=== PATIENT | male | born 1935 | race Caucasian/White ===

== ENCOUNTER 2019-03-25 10:24 | Emergency (ER) | payer MEDICARE, BC ==
[~2019-03-25] VITALS: Ht 175.3 cm; Wt 78.0 kg
[~2019-03-25 10:24] MED LIST: AMLO2.5T4 PO; ASPI-807 PO; LOSA100T31 PO; NIAC500T2 PO; OMEP20CA11 PO
--- NOTE | 2019-03-25 10:35 | NUR ---
PATIENT BIB RA 90 FROM HOME, TRIP/FALL, NO LOC. PATIENT A/O X 4. NO ACUTE DISTRESS. PATIENT REPORTS SLIDING AND FALLING, DENIES HEAD TRAUMA. SIGNIFICANT OTHER/CAREGIVER AT BEDSIDE. PATIENT CONNECTED TO MONITOR. WILL CONTINUE TO MONITOR
--- NOTE | 2019-03-25 12:43 | NUR ---
Ambulatory with a steady gait. Patient discharged to home in stable condition. Written and verbal after care instructions given. Patient verbalizes understanding of instruction.
[2019-03-25 12:44] VITALS: BP 138/75
== END 2019-03-25 12:45 | disposition home or self-care (01) ==
LOC: ER 10:26
DX: F03.90 Unspecified dementia, unspecified severity, without behavioral disturbance, psychotic disturbance, mood disturbance, and anxiety (principal); R51 Headache; I10 Essential (primary) hypertension; E78.5 Hyperlipidemia, unspecified; Z85.46 Personal history of malignant neoplasm of prostate; Z98.890 Other specified postprocedural states; Z79.82 Long term (current) use of aspirin; Z79.899 Other long term (current) drug therapy; W01.0XXA Fall on same level from slipping, tripping and stumbling without subsequent striking against object, initial encounter; Y93.89 Activity, other specified; Y92.000 Kitchen of unspecified non-institutional (private) residence as the place of occurrence of the external cause; Y99.8 Other external cause status
CPT/HCPCS: 70450-TC; 72125-TC

== ENCOUNTER 2019-08-15 12:06 | Inpatient (IN) | payer MEDICARE, BC ==
[~2019-08-15] VITALS: Ht 177.8 cm; Wt 75.7 kg
[~2019-08-15 12:06] MED LIST changes: -OMEP20CA11 PO; +OMEP20CA15 PO
--- NOTE | 2019-08-15 12:08 | NUR ---
[facility] TO ER, THE CALLED 911 DUE TO WORSENING AGITATION WHILE AT HOME. THE PATIENT HAS HISTORY OF DEMENTIA.
--- NOTE | 2019-08-15 12:10 | NUR ---
TO ER 03
--- NOTE | 2019-08-15 12:16 | NUR ---
TENT FINISHER AT BEDSIDE FOR EVAL. URINAL GIVEN.
[2019-08-15 12:30] LABS: BASOPHILS # (AUTO) 0.1 /CMM (0.0-0.2); BASOPHILS % (AUTO) 1.1 % (0.0-2.0); EOSINOPHILS % (AUTO) 2.8 % (0.0-6.0); HEMATOCRIT 44 % (39-51); HEMOGLOBIN 14.5 g/dL (13.5-17.5); LYMPHOCYTES # (AUTO) 1.3 /CMM (0.8-4.8); LYMPHOCYTES % (AUTO) 25.5 % (20.0-44.0); MEAN CORPUSCULAR HGB CONC 33 g/dl (31.0-36.0); MEAN CORPUSCULAR VOLUME 94 fL (80-96); MONOCYTES # (AUTO) 0.5 /CMM (0.1-1.30); MONOCYTES % (AUTO) 8.9 % (2.0-12.0); NEUTROPHILS # (AUTO) 3.2 /CMM (1.8-8.9); NEUTROPHILS % (AUTO) 61.7 % (43.0-81.0); PLATELET COUNT (AUTO) 150 /CMM (150-450); RED BLOOD CELL COUNT(AUTO) 4.67 MIL/uL (4.5-6.0); WHITE BLOOD COUNT (AUTO) 5.1 K/uL (4.3-11.0)
[2019-08-15] MEDS ORDERED: METO25TA3 PO (12:39)
[2019-08-15] MEDS ORDERED: CHOL100040 PO (12:39)
[2019-08-15] MEDS ORDERED: DONE10TA44 PO (12:39)
[2019-08-15] MEDS ORDERED: OMEP20CA15 PO (12:39)
[2019-08-15] MEDS ORDERED: ASCO500T9 PO (12:39)
[2019-08-15] MEDS ORDERED: DIVA125T32 PO (12:39)
[2019-08-15] MEDS ORDERED: TEMA15CA PO (12:39)
[2019-08-15] MEDS ORDERED: FLUT1DIS3 IH (12:39)
[2019-08-15] MEDS ORDERED: VITA400C19 PO (12:39)
[2019-08-15] MEDS ORDERED: MEMA10TA PO (12:39)
[2019-08-15] MEDS ORDERED: OLME40TA12 PO (12:39)
[2019-08-15] MEDS ORDERED: OLAN5TAB3 PO (12:39)
[2019-08-15] MEDS ORDERED: CALC-7 PO (12:39)
[2019-08-15 12:43] LABS: ALANINE AMINOTRANSFERASE 21 U/L (12-78); ALCOHOL, BLOOD < 3 mg/dL (0-0); ALKALINE PHOSPHATASE 74 U/L (46-116); ASPARTATE AMINOTRANSFERASE 29 U/L (15-37); BILIRUBIN,DIRECT 0.1 mg/dL (0.0-0.2); BILIRUBIN,TOTAL 0.6 mg/dL (0.2-1.0); CALCIUM, SERUM 8.4 mg/dL (8.5-10.1); CARBON DIOXIDE 26 mmol/L (21-32); CHLORIDE 106 mmol/L (98-107); GLUCOSE 81 mg/dL (74-106); POTASSIUM 3.5 mmol/L (3.5-5.1); SODIUM SERUM 143 mmol/L (136-145); TOTAL PROTEIN, SERUM 6.4 g/dL (6.4-8.2); UREA NITROGEN, BLOOD 10 mg/dL (7-18)
[2019-08-15 12:45] LABS: ACETAMINOPHEN 0 ug/ml (10-30); SALICYLATE < 0.2 mg/dL (2.8-20.0)
--- NOTE | 2019-08-15 12:52 | NUR ---
URINE SAMPLE OBTAINED VIA STERILE TECHNIQUE.
[2019-08-15 13:03] LABS: APPEARANCE,URINE Clear (CLEAR); BILIRUBIN,URINE SMALL (NEGATIVE); BLOOD, URINE Negative Ery/uL (NEGATIVE); COLOR,URINE Yellow (YELLOW); KETONES,URINE 15 (NEGATIVE); LEUKOCYTE ESTERASE ,URINE Negative (NEGATIVE); NITRITE, URINE Negative (NEGATIVE); PROTEIN,URINE Negative (NEGATIVE); UGLUCOSE Negative (NEGATIVE)
[2019-08-15 13:04] LABS: BACTERIA,URINE Few /HPF (None Seen); RBC,URINE 0-2 /HPF (0-2); SQUAMOUS EPITHELIAL CELL,UR Few /HPF (None Seen); WBC,URINE 0-2 /HPF (0-3)
[2019-08-15 13:05] LABS: THYROID STIMULATING HORMONE 1.139 uIU/mL (0.358-3.74)
--- NOTE | 2019-08-15 13:23 | NUR ---
DIALS SUPERVISOR IVCKY KUMARI 1HR
--- NOTE | 2019-08-15 15:09 | NUR ---
GOT GPS BED 215-B
--- NOTE | 2019-08-15 15:40 | NUR ---
REPORT GIVEN TO NUVIA PORTILLO FOR JAIMEE.
--- NOTE | 2019-08-15 15:51 | NUR ---
PATIENT TRANSFERRED TO [facility] IN STABLE CONDITION. A/OX1. NO DISTRESS NOTED.
[2019-08-15 16:00] VITALS: BP 160/87
[2019-08-15] MEDS ORDERED: MAG HYDROX/AL HYDROX/SIMETH 30 ML UDC PO PRN (16:30)
[2019-08-15] MEDS ORDERED: MAGNESIUM HYDROXIDE 30 ML UDC PO PRN (16:30)
[2019-08-15] MEDS ORDERED: BLOOD SUGAR DIAGNOSTIC 1 EACH STRIP IN ONE (16:30)
[2019-08-15] MEDS: MEMANTINE HCL 5 MG TABLET PO SCH (16:59)
[2019-08-15] MEDS: CALCIUM CARB 250MG /VITAMIN D 1 UDTAB PO SCH (16:59)
[2019-08-15] MEDS: VITAMIN E 400 UNIT CAPSULE PO SCH (17:01)
[2019-08-15] MEDS: ASPIRIN 81 MG TAB.CHEW PO SCH (17:02)
[2019-08-15] MEDS: METOPROLOL SUCCINATE 25 MG TAB.SR.24H PO SCH (17:02)
[2019-08-15] MEDS: LOSARTAN POTASSIUM 50 MG TABLET PO SCH (17:03)
[2019-08-15] MEDS: CHOLECALCIFEROL 1,000 UNIT TABLET (VIT D3) PO SCH (17:09)
--- NOTE | 2019-08-15 18:59 | NUR ---
GPS/RN-NOTES ADMITTED 84 [address] PATIENT. DR. BOLANOS AND DR. ABARCA AWARE OF THE ADMISSION.PATIENT ON 5150 FOR DTO AND GD ADULT. UPON FACE TO FACE ASSESSMENT PATIENT WAS CONFUSED ALERT TO NAME ONLY UNABLE TO ANSWER SIMPLE QUESTIONS. PATIENT'S SIGNIFICANT OTHER EFREN JANSEN ([phone]) MADE AWARE OF THE ADMISSION . PER EFREN JANSEN PATIENT IS DNR/DNI ADVANCE DIRECTIVES COPY WAS PLACE IN THE CHART. DR. ABARCA WAS MADE AWARE OF THE ADVANCE DIRECTIVES WITH T.O ORDER OF DNR/DNI .NOTED AND CARRIED OUT CO SIGNED BY THE CHARGE NURSE. FULL BODY ASSESSMENT AND CONTRABAND DONE.ENDORSE TO THE COST CONTROL ANALYST FOR CONTINUITY OF CARE.
[2019-08-15 20:00] VITALS: BP_SYST 151; BP_SYST 161; BP_DIAS 89
[2019-08-15] MEDS: FLUTICASONE/VILANTEROL 1 EACH BLST.W.DEV IH SCH (21:03)
[2019-08-15] MEDS: PANTOPRAZOLE 40 MG TABLET.DR PO SCH (21:16)
[2019-08-15] MEDS: DONEPEZIL 5 MG TABLET PO SCH (21:17)
[2019-08-16 07:17] LABS: ALBUMIN 3.2 g/dL (3.4-5.0); BILIRUBIN,TOTAL 0.8 mg/dL (0.2-1.0); CREATININE 1.2 mg/dL (0.6-1.3); POTASSIUM 3.2 mmol/L (3.5-5.1); TOTAL PROTEIN, SERUM 6.8 g/dL (6.4-8.2)
[2019-08-16 07:21] LABS: CHOLESTEROL 177 mg/dL (<200); HDL CHOLESTEROL 58 mg/dL (40-60); LDL 93 mg/dL (0-99); TRIGLYCERIDES 88 mg/dL (30-150)
[2019-08-16 08:00] VITALS: BP 183/99
[2019-08-16] MEDS: FLUTICASONE/VILANTEROL 1 EACH BLST.W.DEV IH SCH ×2 (08:41→21:11)
[2019-08-16] MEDS: MEMANTINE HCL 5 MG TABLET PO SCH ×2 (08:41→16:12)
[2019-08-16] MEDS: VITAMIN E 400 UNIT CAPSULE PO SCH (08:42)
[2019-08-16] MEDS: CHOLECALCIFEROL 1,000 UNIT TABLET (VIT D3) PO SCH (08:42)
[2019-08-16] MEDS: CALCIUM CARB 250MG /VITAMIN D 1 UDTAB PO SCH ×2 (08:42→16:12)
[2019-08-16] MEDS: ASCORBIC ACID 500 MG TABLET PO SCH (08:42)
--- NOTE | 2019-08-16 08:42 | NUR ---
GPS RN NOTE: REFUSAL OF MEDICATIONS PATIENT SLEPT FOR ONLY 1 HOUR LAST NIGHT. UNCOOPERATIVE AND ANGRY THIS MORNING. UNABLE TO USE INHALER DUE TO BEING UNABLE TO COMPREHEND DIRECTION. PATIENT WAS UNABLE TO TAKE HIS MEDICATIONS DUE TO NOT BEING ABLE TO FOLLOW DIRECTION. WHEN MEDICATION CRUSHED AND GIVEN IN APPLE SAUCE PATIENT REFUSED AFTER 2 SMALL BITES AND STARTED TO YELL. Addendum: 08/16/19 at 1208 by CAMILO BHATTI RN patient had less than whole dose of 40meq of potassium. patient sedated. attempted to arouse patient who had 2 small bites of apple sauce with medication and then proceeded to spit out apple sauce and went back to sleep
[2019-08-16] MEDS ORDERED: POTASSIUM CHLORIDE 20 MEQ TAB.PRT.SR PO SCH (11:30)
[2019-08-16 16:00] VITALS: BP 144/90
[2019-08-16] MEDS: ASPIRIN 81 MG TAB.CHEW PO SCH (17:00)
[2019-08-16] MEDS: METOPROLOL SUCCINATE 25 MG TAB.SR.24H PO SCH (17:04)
[2019-08-16] MEDS: LOSARTAN POTASSIUM 50 MG TABLET PO SCH (17:04)
[2019-08-16 21:10] VITALS: BP 147/73
[2019-08-16] MEDS: DONEPEZIL 5 MG TABLET PO SCH (21:11)
[2019-08-16] MEDS: PANTOPRAZOLE 40 MG TABLET.DR PO SCH (21:11)
[2019-08-16] MEDS ORDERED: MIRTAZAPINE 15 MG TABLET PO SCH (22:00)
[2019-08-17] MEDS: LORAZEPAM 0.5 MG TABLET PO PRN (03:48)
--- NOTE | 2019-08-17 03:49 | NUR ---
Pt agitated. trying to climb out of bed. Least restrictive measures ineffective. Ativan 0.5 mg po prn given as ordered. Will continue to monitor.
--- NOTE | 2019-08-17 04:50 | NUR ---
Post 1 hour Ativan effective. Pt is calm. Will continue to monitor.
[2019-08-17 08:00] VITALS: BP 144/85
[2019-08-17] MEDS: FLUTICASONE/VILANTEROL 1 EACH BLST.W.DEV IH SCH ×2 (08:46→21:16)
[2019-08-17] MEDS: CALCIUM CARB 250MG /VITAMIN D 1 UDTAB PO SCH ×2 (08:47→17:10)
[2019-08-17] MEDS: ASCORBIC ACID 500 MG TABLET PO SCH (08:47)
[2019-08-17] MEDS: CHOLECALCIFEROL 1,000 UNIT TABLET (VIT D3) PO SCH (08:48)
[2019-08-17] MEDS: VITAMIN E 400 UNIT CAPSULE PO SCH (08:48)
[2019-08-17] MEDS: MEMANTINE HCL 5 MG TABLET PO SCH ×2 (08:48→17:11)
--- NOTE | 2019-08-17 15:11 | NUR ---
GROUP NOTE: SW encouraged pt to attend group therapy on this present day to discuss "discharge planning." Pt is not appropriate for group. Pt has Alzheimer's and is unable to engage in a meaningful conversation.
[2019-08-17 16:00] VITALS: BP 109/74
[2019-08-17] MEDS ORDERED: risperiDONE 0.25 MG TABLET PO SCH (17:00)
[2019-08-17 17:07] LABS: ALANINE AMINOTRANSFERASE 37 U/L (12-78); ALBUMIN 3.6 g/dL (3.4-5.0); ALKALINE PHOSPHATASE 76 U/L (46-116); ASPARTATE AMINOTRANSFERASE 37 U/L (15-37); BILIRUBIN,TOTAL 1.1 mg/dL (0.2-1.0); CALCIUM, SERUM 9.3 mg/dL (8.5-10.1); CARBON DIOXIDE 31 mmol/L (21-32); CHLORIDE 103 mmol/L (98-107); CREATININE 1.3 mg/dL (0.6-1.3); GLUCOSE 109 mg/dL (74-106); POTASSIUM 3.9 mmol/L (3.5-5.1); SODIUM SERUM 143 mmol/L (136-145); TOTAL PROTEIN, SERUM 7.3 g/dL (6.4-8.2); UREA NITROGEN, BLOOD 16 mg/dL (7-18)
[2019-08-17] MEDS: ASPIRIN 81 MG TAB.CHEW PO SCH (17:10)
[2019-08-17] MEDS: METOPROLOL SUCCINATE 25 MG TAB.SR.24H PO SCH (17:10)
[2019-08-17] MEDS: risperiDONE 0.25 MG TABLET PO SCH (17:11)
[2019-08-17] MEDS: LOSARTAN POTASSIUM 50 MG TABLET PO SCH (17:12)
[2019-08-17 20:12] VITALS: BP 136/46
[2019-08-17] MEDS: PANTOPRAZOLE 40 MG TABLET.DR PO SCH (21:15)
[2019-08-17] MEDS: DONEPEZIL 5 MG TABLET PO SCH (21:15)
[2019-08-17] MEDS: MIRTAZAPINE 15 MG TABLET PO SCH (21:16)
[2019-08-18] MEDS: TEMAZEPAM 7.5 MG CAPSULE PO PRN (01:26)
--- NOTE | 2019-08-18 01:29 | NUR ---
GPS RN NOTES:INSOMNIA UPON DOING ROUNDS, PT AWAKE AND TRYING TO GET OUT OF BED. ASKED PT IF HE NEEDED ANYTHING. PT STATED, "IM AWAKE AWAKE. HELLO." PT VITALS ARE WNL. BREATHING EVEN AND UNLABORED. OFFERED RESTORIL 7.5MG PO PRN ORDERED. PT AGREED AND TOLERATED MEDICATION WELL. CONTINUE TO MONITOR.
[2019-08-18] MEDS: LORAZEPAM 0.5 MG TABLET PO PRN (04:08)
--- NOTE | 2019-08-18 04:09 | NUR ---
GPS RN NOTES: ANXIOUS PT PUT IN OUMAR CHAIR DUE TO PT YELLING IN ROOM AND GETTING OUT OF BED. STAFF MEMBER WATCHING OVER PT. PT CONTINUE SPEAKING LOUDER. PT IS ANXIOUS. OFFERED ATIVAN 0.5MG PO PRN ORDERED. PT AGREED AND TOLERATED MEDICATION WELL. CONTINUE TO MONITOR.
--- NOTE | 2019-08-18 05:58 | NUR ---
GPS RN NOTES: REFUSED TO DRAW BLOOD PT REFUSED TO DRAW BLOOD. EXPLAIN RISKS AND BENEFITS. PT STILL REFUSED X3. LABORATORY WILL TRY AGAIN LATER TODAY. WILL ENDORSE TO DAY SHIFT. CONTINUE TO MONITOR
[2019-08-18 08:00] VITALS: BP 148/84
[2019-08-18] MEDS: MEMANTINE HCL 5 MG TABLET PO SCH ×2 (08:41→17:02)
[2019-08-18] MEDS: ASCORBIC ACID 500 MG TABLET PO SCH (08:41)
[2019-08-18] MEDS: CALCIUM CARB 250MG /VITAMIN D 1 UDTAB PO SCH ×2 (08:41→17:02)
[2019-08-18] MEDS: VITAMIN E 400 UNIT CAPSULE PO SCH (08:41)
[2019-08-18] MEDS: CHOLECALCIFEROL 1,000 UNIT TABLET (VIT D3) PO SCH (08:41)
[2019-08-18] MEDS: risperiDONE 0.25 MG TABLET PO SCH ×3 (08:41→17:02)
--- NOTE | 2019-08-18 09:32 | NUR ---
FAMILY CONTACT: MORRO contacted pts significant other Maira [phone] for collateral information and discharge planning. She states pt was diagnosed with Alzheimer's 7 year ago and states she has been taking care of him for the past 3 years. She states that pt had a major surgery and had severe blood loss to the brain which impacted his memory she states that since then pts been declining cognitively and she is not unable to care for him at home and wishes for pt to be placed at a SNF. She states pt does not sleep at night and is up all night wandering and responding to visual/auditory hallucinations and becomes agitated and aggressive.
--- NOTE | 2019-08-18 09:53 | NUR ---
GPS RN NOTE: PATIENT UP IN OUMAR CHAIR SLEEPING INTERMITTENTLY. AROUSABLE AOX1. PATIENT COMPLIANT WITH MEDICATION ADMINISTRATION. CRUSHED MEDICATIONS IN PUDDING. PATIENT IS IN A CALM AND COOPERATIVE MOOD THIS AM. ATE FULL MEAL FOR BREAKFAST. SKIN CARE RENDERED. WILL CONTINUE TO MONITOR Q15 FOR MOOD, SAFETY AND BEHAVIOR.
[2019-08-18] MEDS: FLUTICASONE/VILANTEROL 1 EACH BLST.W.DEV IH SCH ×2 (09:59→20:57)
--- NOTE | 2019-08-18 12:15 | NUR ---
INITIAL DISCHARGE PLAN: Per pts significant other Maira [phone] she wishes for pt to be placed at a SNF as she is unable to care for him. SW will help form a safe and proper discharge plan in collaboration with .
--- NOTE | 2019-08-18 15:14 | NUR ---
GROUP NOTE: SW encouraged pt to attend group therapy on this present day to discuss "negative behavior." Pt is not appropriate for group. Pt has Alzheimer's and is unable to engage in a meaningful conversation.
[2019-08-18 16:00] VITALS: BP 127/87
[2019-08-18] MEDS: LOSARTAN POTASSIUM 50 MG TABLET PO SCH (17:02)
[2019-08-18] MEDS: ASPIRIN 81 MG TAB.CHEW PO SCH (17:02)
[2019-08-18] MEDS: METOPROLOL SUCCINATE 25 MG TAB.SR.24H PO SCH (17:03)
[2019-08-18 20:00] VITALS: BP 101/82
[2019-08-18 20:14] VITALS: BP 101/82
[2019-08-18 20:20] LABS: BASOPHILS # (AUTO) 0.1 /CMM (0.0-0.2); BASOPHILS % (AUTO) 0.8 % (0.0-2.0); EOSINOPHILS % (AUTO) 1.5 % (0.0-6.0); HEMATOCRIT 46 % (39-51); HEMOGLOBIN 15.3 g/dL (13.5-17.5); LYMPHOCYTES # (AUTO) 1.4 /CMM (0.8-4.8); LYMPHOCYTES % (AUTO) 18.5 % (20.0-44.0); MEAN CORPUSCULAR HGB CONC 33 g/dl (31.0-36.0); MEAN CORPUSCULAR VOLUME 93 fL (80-96); MONOCYTES % (AUTO) 13.2 % (2.0-12.0); NEUTROPHILS # (AUTO) 5.1 /CMM (1.8-8.9); PLATELET COUNT (AUTO) 193 /CMM (150-450); RED BLOOD CELL COUNT(AUTO) 4.94 MIL/uL (4.5-6.0); WHITE BLOOD COUNT (AUTO) 7.7 K/uL (4.3-11.0)
[2019-08-18] MEDS: MIRTAZAPINE 15 MG TABLET PO SCH (21:25)
[2019-08-18] MEDS: PANTOPRAZOLE 40 MG TABLET.DR PO SCH (21:25)
[2019-08-18] MEDS: DONEPEZIL 5 MG TABLET PO SCH (21:26)
--- NOTE | 2019-08-18 23:05 | NUR ---
GPS RN notes Transfer of care to BANDAR Adames.
--- NOTE | 2019-08-18 23:10 | NUR ---
GPS RN OPENING NOTE RECEIVED REPORT FROM TRUMAN PORTILLO. TOLERATING ROOM AIR. NO S/S OF PAIN. NO DISTRESS NOTED. PATIENT CURRENTLY SITTING IN OUMAR CHAIR IN HALLWAY. WILL CONTINUE TO MONITOR.
--- NOTE | 2019-08-18 23:50 | NUR ---
TRANSFER OF CARE TO TRUMAN PORTILLO.
--- NOTE | 2019-08-18 23:51 | NUR ---
GPS RN notes Received Pt back from BANDAR Krishnamurthy.
[2019-08-19 08:00] VITALS: BP 125/65
--- NOTE | 2019-08-19 08:48 | NUR ---
GPS RN NOTE: RECEIVED PATIENT RESTING IN BED. PATIENT WAS FED BREAKFAST BY PALLET SORTER. SKIN CARE RENDERED. RESPIRATIONS EVEN AND UNLABORED. PATIENT IS AOX1 TO SELF, DISORIENTED, CONFUSED, DISORGANIZED. BED IN LOCKED POSITION, LOW, WITH 2 SIDE RAILS UP FOR SAFETY. ENVIRONMENTAL CHECKS DONE. WILL CONTINUE TO MONITOR PATIENT Q15 FOR MOOD, SAFETY AND BEHAVIOR
[2019-08-19] MEDS: VITAMIN E 400 UNIT CAPSULE PO SCH ×2 (09:00→09:21)
[2019-08-19] MEDS: ASCORBIC ACID 500 MG TABLET PO SCH ×2 (09:00→09:21)
[2019-08-19] MEDS: CHOLECALCIFEROL 1,000 UNIT TABLET (VIT D3) PO SCH ×2 (09:00→09:20)
[2019-08-19] MEDS: FLUTICASONE/VILANTEROL 1 EACH BLST.W.DEV IH SCH ×3 (09:00→21:01)
[2019-08-19] MEDS: CALCIUM CARB 250MG /VITAMIN D 1 UDTAB PO SCH ×3 (09:00→16:07)
[2019-08-19] MEDS: MEMANTINE HCL 5 MG TABLET PO SCH ×3 (09:00→16:07)
[2019-08-19] MEDS: risperiDONE 0.25 MG TABLET PO SCH ×4 (09:00→16:08)
--- NOTE | 2019-08-19 10:24 | NUR ---
GPS RN NOTE: INHALER PATIENT IS SEDATED AND UNABLE TO FOLLOW COMMANDS TO USE HIS INHALER.
--- NOTE | 2019-08-19 10:27 | NUR ---
GPS RN NOTE: MED REFUSAL PATIENT IS SEDATED AND WHILE ABLE TO BE AROUSED REFUSING TO RESPOND AND TO TAKE HIS MEDICATIONS. ATTEMPTED MEDICATION ADMINISTRATION 3X. LAST ATTEMPT JUST MADE AND PATIENT CONTINUES TO REFUSE FOOD AND MEDICATION.
[2019-08-19 16:00] VITALS: BP 112/61
[2019-08-19] MEDS: ASPIRIN 81 MG TAB.CHEW PO SCH (17:00)
[2019-08-19] MEDS: METOPROLOL SUCCINATE 25 MG TAB.SR.24H PO SCH (17:00)
[2019-08-19] MEDS: LOSARTAN POTASSIUM 50 MG TABLET PO SCH (17:00)
[2019-08-19 20:26] VITALS: BP 106/60
[2019-08-19 21:20] VITALS: BP 116/67
[2019-08-19] MEDS: DONEPEZIL 5 MG TABLET PO SCH (21:23)
[2019-08-19] MEDS: MIRTAZAPINE 15 MG TABLET PO SCH (21:23)
[2019-08-19] MEDS: PANTOPRAZOLE 40 MG TABLET.DR PO SCH (21:24)
[2019-08-19] MEDS: TEMAZEPAM 7.5 MG CAPSULE PO PRN (23:24)
--- NOTE | 2019-08-19 23:26 | NUR ---
GPS RN NOTES:INSOMNIA UPON DOING ROUNDS, PT AWAKE SPEAKING TO ELEVATOR REPAIRER APPRENTICE LOUDLY IN THE OUMAR CHAIR. ASKED PT IF HE NEEDED ANYTHING. PT STATED, "WHAT DO YOU HAVE AND WANT." BREATHING EVEN AND UNLABORED. OFFERED RESTORIL 7.5MG PO PRN ORDERED FOR SLEEP. PT AGREED AND TOLERATED MEDICATION WELL. CONTINUE TO MONITOR.
--- NOTE | 2019-08-20 04:32 | NUR ---
GPS RN NOTES: REFUSED ATIVAN PRN TRANSFERRED PT TO OUMAR CHAIR DUE TO YELLING IN ROOM AND GETTING OUT OF BED WITHOUT ASSISTANCE. PT WOKE UP ROOMMATE AND CONTINUE TO SPEAK LOUDLY. ASKED PT IF HE NEEDED ANYTHING. PT STATED "NO". PT IS CURRENTLY IN OUMAR CHAIR NEXT TO DAY ROOM WITH PRESS OFFBEARER STAFF MONITORING PT. NO S/S OF SOB. NO S/S OF RESPIRATORY DISTRESS BREATHING EVEN AND UNLABORED. OFFERED ATIVAN 0.5MG PO PRN ORDERED PT REFUSED. EXPLAIN RISKS AND BENEFITS. PT STILL REFUSED X3. PT IS CURRENTLY CALM AND QUIET OF NOW. CONTINUE TO MONITOR.
[2019-08-20] MEDS: LORAZEPAM 0.5 MG TABLET PO PRN (04:45)
--- NOTE | 2019-08-20 04:46 | NUR ---
GPS RN NOTES: ANXIOUS PT BANGING ON OUMAR CHAIR AND TALKING LOUDLY. STAFF MEMBER WATCHING OVER PT. PT CONTINUE SPEAKING LOUDER. PT IS ANXIOUS. OFFERED ATIVAN 0.5MG PO PRN ORDERED. PT AGREED AND TOLERATED MEDICATION WELL. CONTINUE TO MONITOR.
[2019-08-20 06:51] LABS: BASOPHILS # (AUTO) 0.1 /CMM (0.0-0.2); BASOPHILS % (AUTO) 0.8 % (0.0-2.0); EOSINOPHILS % (AUTO) 1.9 % (0.0-6.0); HEMATOCRIT 44 % (39-51); HEMOGLOBIN 14.7 g/dL (13.5-17.5); LYMPHOCYTES # (AUTO) 1.4 /CMM (0.8-4.8); LYMPHOCYTES % (AUTO) 18.4 % (20.0-44.0); MEAN CORPUSCULAR HGB CONC 33 g/dl (31.0-36.0); MEAN CORPUSCULAR VOLUME 93 fL (80-96); MONOCYTES # (AUTO) 0.9 /CMM (0.1-1.30); MONOCYTES % (AUTO) 11.4 % (2.0-12.0); NEUTROPHILS # (AUTO) 5.3 /CMM (1.8-8.9); NEUTROPHILS % (AUTO) 67.5 % (43.0-81.0); PLATELET COUNT (AUTO) 191 /CMM (150-450); RED BLOOD CELL COUNT(AUTO) 4.75 MIL/uL (4.5-6.0); WHITE BLOOD COUNT (AUTO) 7.8 K/uL (4.3-11.0)
[2019-08-20 07:12] LABS: ALANINE AMINOTRANSFERASE 43 U/L (12-78); ALBUMIN 3.4 g/dL (3.4-5.0); ALKALINE PHOSPHATASE 70 U/L (46-116); ASPARTATE AMINOTRANSFERASE 40 U/L (15-37); BILIRUBIN,TOTAL 0.7 mg/dL (0.2-1.0); CALCIUM, SERUM 9.2 mg/dL (8.5-10.1); CARBON DIOXIDE 30 mmol/L (21-32); CHLORIDE 106 mmol/L (98-107); CREATININE 1.3 mg/dL (0.6-1.3); GLUCOSE 98 mg/dL (74-106); POTASSIUM 3.6 mmol/L (3.5-5.1); SODIUM SERUM 144 mmol/L (136-145); UREA NITROGEN, BLOOD 29 mg/dL (7-18)
[2019-08-20 08:00] VITALS: BP 104/56
--- NOTE | 2019-08-20 08:00 | NUR ---
RECEIVED PATIENT RESTING IN BED. PATIENT WAS FED BREAKFAST BY DEHYDROGENATION OPERATOR. SKIN CARE RENDERED. RESPIRATIONS EVEN AND UNLABORED. PATIENT IS AOX1 TO SELF, DISORIENTED, CONFUSED, DISORGANIZED. BED IN LOCKED POSITION, LOW, WITH 2 SIDE RAILS UP FOR SAFETY. ENVIRONMENTAL CHECKS DONE. WILL CONTINUE TO MONITOR PATIENT Q15 FOR MOOD, SAFETY AND BEHAVIOR
[2019-08-20] MEDS: FLUTICASONE/VILANTEROL 1 EACH BLST.W.DEV IH SCH ×2 (08:51→21:00)
[2019-08-20] MEDS: VITAMIN E 400 UNIT CAPSULE PO SCH (08:53)
[2019-08-20] MEDS: MEMANTINE HCL 5 MG TABLET PO SCH ×2 (08:53→17:03)
[2019-08-20] MEDS: CHOLECALCIFEROL 1,000 UNIT TABLET (VIT D3) PO SCH (08:53)
[2019-08-20] MEDS: CALCIUM CARB 250MG /VITAMIN D 1 UDTAB PO SCH ×2 (08:53→17:03)
[2019-08-20] MEDS: ASCORBIC ACID 500 MG TABLET PO SCH (08:53)
[2019-08-20] MEDS: risperiDONE 0.25 MG TABLET PO SCH ×3 (08:53→17:03)
--- NOTE | 2019-08-20 09:00 | NUR ---
SNF REFERRAL: MORRO faxed SNF referral to [facility] Address: [address] [facility], [place] [address] for review.
--- NOTE | 2019-08-20 12:51 | NUR ---
SNF REFERRAL: SW received a call from milady Ness at [facility] Address: [address] [place] [address] stating pt has been accepted to the facility.
--- NOTE | 2019-08-20 13:02 | NUR ---
ATTEMPTED TO DO STRAIGHT IN AND OUT CATHETER TO COLLECT URINE FOR UA C/S BUT PT WAS SO AGGRESSIVE,KICKING AND HITTING STAFF INSPITE OF EXPLAINING THE PROCEDURE PRIOR TO DOING STRAIGHT CATH.UNABLE TO COLLECT URINE AT THIS TIME.WILL TRY LATER.
--- NOTE | 2019-08-20 15:57 | NUR ---
Individual Note: In lieu of group therapy due to COVID 19, SW met with the pt at bedside but the pt was unable to engage in a conversation due to having Alzheimers. SW deemed the pt inappropriate for therapy.
[2019-08-20 16:00] VITALS: BP 124/74
[2019-08-20] MEDS: ASPIRIN 81 MG TAB.CHEW PO SCH (17:04)
[2019-08-20] MEDS: METOPROLOL SUCCINATE 25 MG TAB.SR.24H PO SCH (17:04)
[2019-08-20] MEDS: LOSARTAN POTASSIUM 50 MG TABLET PO SCH (17:08)
[2019-08-20 20:45] VITALS: BP 104/70
[2019-08-20] MEDS: MIRTAZAPINE 15 MG TABLET PO SCH (21:37)
[2019-08-20] MEDS: DONEPEZIL 5 MG TABLET PO SCH (21:37)
[2019-08-20] MEDS: PANTOPRAZOLE 40 MG TABLET.DR PO SCH (21:37)
--- NOTE | 2019-08-20 21:44 | NUR ---
GPS RN NOTES: REFUSED BREO ELLIPTA MEDICATION PT REFUSED BREO ELLIPTA INHALER DUE AT 2100. PT BECOME MORE AGITATED WHEN OFFERED MEDICATION TP PT. EXPLAINED RISKS AND BENEFITS . PT STILL REFUSED. PT MORE AGITATED. CONTINUE TO MONITOR.
[2019-08-21 01:26] LABS: APPEARANCE,URINE CLEAR (CLEAR); BILIRUBIN,URINE SMALL (NEGATIVE); BLOOD, URINE NEGATIVE Ery/uL (NEGATIVE); COLOR,URINE YELLOW (YELLOW); KETONES,URINE TRACE (NEGATIVE); LEUKOCYTE ESTERASE ,URINE NEGATIVE (NEGATIVE); NITRITE, URINE NEGATIVE (NEGATIVE); PROTEIN,URINE TRACE mg/dl (NEGATIVE); UGLUCOSE NEGATIVE (NEGATIVE); UROBILINOGEN,URINE 0.2 EU/dL (0.2)
[2019-08-21 01:30] LABS: BACTERIA,URINE Few /HPF (None Seen); RBC,URINE 0-2 /HPF (0-2); SQUAMOUS EPITHELIAL CELL,UR Few /HPF (None Seen)
[2019-08-21 06:45] LABS: CALCIUM, SERUM 9.1 mg/dL (8.5-10.1); CREATININE 1.2 mg/dL (0.6-1.3); POTASSIUM 3.5 mmol/L (3.5-5.1)
[2019-08-21 08:00] VITALS: BP 140/63
[2019-08-21] MEDS: ASCORBIC ACID 500 MG TABLET PO SCH (08:10)
[2019-08-21] MEDS: CALCIUM CARB 250MG /VITAMIN D 1 UDTAB PO SCH ×2 (08:10→16:44)
[2019-08-21] MEDS: MEMANTINE HCL 5 MG TABLET PO SCH ×2 (08:11→16:46)
[2019-08-21] MEDS: VITAMIN E 400 UNIT CAPSULE PO SCH (08:11)
[2019-08-21] MEDS: risperiDONE 0.25 MG TABLET PO SCH ×3 (08:11→16:44)
[2019-08-21] MEDS: CHOLECALCIFEROL 1,000 UNIT TABLET (VIT D3) PO SCH (08:11)
[2019-08-21] MEDS: FLUTICASONE/VILANTEROL 1 EACH BLST.W.DEV IH SCH ×2 (08:18→21:39)
--- NOTE | 2019-08-21 08:33 | NUR ---
FAMILY CONTACT: MORRO contacted pts significant other Maira [phone] and informed her pt has been accepted to [facility]. MORRO also informed her that she is waiting for discharge order from MD and she stated that yesterday when she called pt was agitated and had not slept well the night before. MORRO informed her that pt slept 8 hours last night and will inform MD of her concerns. S/O agrees with treatment and discharge plan once pt is stable.
[2019-08-21] MEDS: LORAZEPAM 0.5 MG TABLET PO PRN (08:55)
--- NOTE | 2019-08-21 09:00 | NUR ---
pt noted being combative to staff while providing care. yelling and screaming noted as well. prn ativan given to pt as ordered. will continue to monitor.
--- NOTE | 2019-08-21 09:43 | NUR ---
WOUND CARE CONSULT: PT PRESENTS WITH LEFT ARM SKIN TEAR AND DRY SKIN TO UPPER AND LOWER EXTREMITIES WITH DISCOLORATION, PRESENT ON ADMISSION. RECOMMENDATIONS MADE FOR SKIN PROTECTION AND WOUND CARE. DISCUSSED WITH NURSING STAFF. WILL SEE PRN. VINCENT IN AGREEMENT WITH PLAN OF CARE. Addendum: 08/21/19 at 0944 by SPRING AGUILLON WNDNU Amended: Links added.
[2019-08-21] MEDS ORDERED: Z GUARD REMEDY 2 OZ OINT TP PRN (10:00)
[2019-08-21] MEDS: MINERAL OIL/PETROLATUM,WHITE 120 GM JAR TP SCH (11:13)
[2019-08-21] MEDS: Z GUARD REMEDY 2 OZ OINT TP SCH (11:13)
[2019-08-21] MEDS: BENZTROPINE MESYLATE (1 MG) 1 MG TABLET PO SCH (12:05)
--- NOTE | 2019-08-21 13:05 | NUR ---
pt requesting for [id number] prn for mild pain, generalized pain. prn given to pt as ordered. will continue to monitor pt.
--- NOTE | 2019-08-21 14:20 | NUR ---
FAMILY CONTACT: SW received a call from pts significant other Maira [phone] expressing concern with pt discharging to a SNF. She stated she really wishes for pt to be discharged to a [facility] and is questioning why pt has to be discharged to a SNF. SW informed her that pt requires a higher level of care due to his aggressive and unpredictable behavior. SW stated that pt requires total assistance with ADL's and also stated that pt receives PT and will continue to receive it at the SNF. S/O stated that the [facility] has 6 beds with 2 nurses and feels they are capable of handling pts behavior. MORRO stated that she will inform MD of her concern and will have MD call her on Saturday to discuss appropriate discharge plan. In the meantime S/O will fax physicians report to MORRO to have it completed and faxed to the [facility].
[2019-08-21 16:00] VITALS: BP 121/52
[2019-08-21] MEDS: LOSARTAN POTASSIUM 50 MG TABLET PO SCH (17:15)
[2019-08-21] MEDS: METOPROLOL SUCCINATE 25 MG TAB.SR.24H PO SCH (17:15)
[2019-08-21] MEDS: ASPIRIN 81 MG TAB.CHEW PO SCH (17:15)
[2019-08-21 19:30] VITALS: BP 99/56
--- NOTE | 2019-08-21 19:54 | NUR ---
RN NOTES PATIENT IN BED, ASLEEP. NO S/S OR COMPLAIN OF PAIN AT THIS TIME. PATIENT DISPLAYS NO S/S OF DISTRESS. BREATHING EVEN AND UNLABORED ON ROOM AIR. PATIENT IS ALERT AND ORIENTED X 1. CONFUSED, COOPERATIVE, FLAT AFFECT, EASILY IRRITATED. SAFETY PRECAUTIONS IN PLACE. BED IN LOWEST POSITION, LOCKED, AND CALL LIGHT KEPT WITHIN REACH. WILL CONTINUE TO MONITOR
[2019-08-21] MEDS: MIRTAZAPINE 15 MG TABLET PO SCH (21:40)
[2019-08-21] MEDS: PANTOPRAZOLE 40 MG TABLET.DR PO SCH (21:40)
[2019-08-21] MEDS: DONEPEZIL 5 MG TABLET PO SCH (21:40)
[2019-08-22 08:00] VITALS: BP 129/71
--- NOTE | 2019-08-22 08:39 | NUR ---
Pt. with temp. of 100.9 and with cough. Cong Villalta made aware and ordered CBC, BMP, Ferritin, LDH and Chest- X ray.
[2019-08-22] MEDS: FLUTICASONE/VILANTEROL 1 EACH BLST.W.DEV IH SCH ×2 (08:57→21:02)
[2019-08-22] MEDS: VITAMIN E 400 UNIT CAPSULE PO SCH (08:58)
[2019-08-22] MEDS: ACETAMINOPHEN 325 MG TABLET PO PRN ×2 (08:58→17:19)
[2019-08-22] MEDS: ASCORBIC ACID 500 MG TABLET PO SCH (08:58)
[2019-08-22] MEDS: CHOLECALCIFEROL 1,000 UNIT TABLET (VIT D3) PO SCH (08:59)
[2019-08-22] MEDS: MEMANTINE HCL 5 MG TABLET PO SCH ×2 (08:59→17:20)
[2019-08-22] MEDS: CALCIUM CARB 250MG /VITAMIN D 1 UDTAB PO SCH ×2 (08:59→17:20)
[2019-08-22] MEDS: risperiDONE 0.25 MG TABLET PO SCH ×3 (08:59→17:20)
[2019-08-22 09:14] LABS: BASOPHILS % (AUTO) 0.4 % (0.0-2.0); EOSINOPHILS % (AUTO) 1.2 % (0.0-6.0); HEMATOCRIT 41 % (39-51); HEMOGLOBIN 13.6 g/dL (13.5-17.5); LYMPHOCYTES # (AUTO) 0.9 /CMM (0.8-4.8); LYMPHOCYTES % (AUTO) 11.3 % (20.0-44.0); MEAN CORPUSCULAR HGB CONC 33 g/dl (31.0-36.0); MEAN CORPUSCULAR VOLUME 94 fL (80-96); MONOCYTES % (AUTO) 11.7 % (2.0-12.0); NEUTROPHILS # (AUTO) 6.3 /CMM (1.8-8.9); NEUTROPHILS % (AUTO) 75.4 % (43.0-81.0); PLATELET COUNT (AUTO) 151 /CMM (150-450); RED BLOOD CELL COUNT(AUTO) 4.38 MIL/uL (4.5-6.0); WHITE BLOOD COUNT (AUTO) 8.4 K/uL (4.3-11.0)
[2019-08-22 09:22] LABS: CALCIUM, SERUM 8.9 mg/dL (8.5-10.1); CREATININE 1.3 mg/dL (0.6-1.3)
[2019-08-22] MEDS: MINERAL OIL/PETROLATUM,WHITE 120 GM JAR TP SCH (09:22)
[2019-08-22] MEDS: Z GUARD REMEDY 2 OZ OINT TP SCH (09:23)
--- NOTE | 2019-08-22 10:00 | NUR ---
RECHECKED TEMP AND IT WENT DOWN TO 98.8, WILL CONTINUE TO MONITOR.
--- NOTE | 2019-08-22 11:00 | NUR ---
RN NOTES CALLED AND SPOKE TO ALLIE KUMARI, RELAYED THE RESULTS OF LABS AND CHEST XR, ORDERED FOR UA. WILL CONTINUE TO MONITOR.
[2019-08-22] MEDS: BENZTROPINE MESYLATE (1 MG) 1 MG TABLET PO SCH (12:06)
--- NOTE | 2019-08-22 13:00 | NUR ---
RN NOTES SEEN AND EXAMINED BY ALLIE KUMARI, PATIENT WAS TRANSFERRED TO ROOM 217, ON ISOLATION PRECAUTION TO RULE OUT COVID, FAMILY MADE AWARE. V/S WNL. NO SIGNS OF DISTRESS NOTED. WILL CONTINUE TO MONITOR. Addendum: 08/22/19 at 1647 by RADHA FLOREZ RN ALLIE KUMARI ALSO ORDERED 24 HOURS MONITORING FOR OXYGEN SATURATION.
[2019-08-22 13:35] LABS: BILIRUBIN,DIRECT 0.3 mg/dL (0.0-0.2); BILIRUBIN,TOTAL 1.1 mg/dL (0.2-1.0); TOTAL PROTEIN, SERUM 6.5 g/dL (6.4-8.2)
[2019-08-22 16:00] VITALS: BP 122/56
--- NOTE | 2019-08-22 16:45 | NUR ---
Cong Villalta made of aware of the latest of 100.2 and said just give Tylenol.
[2019-08-22] MEDS: ASPIRIN 81 MG TAB.CHEW PO SCH (17:19)
[2019-08-22] MEDS: LOSARTAN POTASSIUM 50 MG TABLET PO SCH (17:25)
[2019-08-22] MEDS: METOPROLOL SUCCINATE 25 MG TAB.SR.24H PO SCH (17:25)
[2019-08-22 18:23] LABS: APPEARANCE,URINE CLEAR (CLEAR); BILIRUBIN,URINE NEGATIVE (NEGATIVE); BLOOD, URINE NEGATIVE Ery/uL (NEGATIVE); KETONES,URINE NEGATIVE (NEGATIVE); LEUKOCYTE ESTERASE ,URINE NEGATIVE (NEGATIVE); NITRITE, URINE NEGATIVE (NEGATIVE); PH,URINE 8.5 (5.0-8.0); PROTEIN,URINE NEGATIVE (NEGATIVE); UGLUCOSE NEGATIVE (NEGATIVE); UROBILINOGEN,URINE 0.2 EU/dL (0.2)
[2019-08-22 18:26] LABS: COLOR,URINE DARK YELLOW (YELLOW)
--- NOTE | 2019-08-22 18:45 | NUR ---
RN NOTES LATEST TEMPERATURE 97.8 ORALLY. WILL CONTINUE TO MONITOR.
--- NOTE | 2019-08-22 19:00 | NUR ---
RN NOTES: REPORTED INCIDENT "HEALTHCARE ASSOCIATED INFECTION" ONLINE PER [facility] POLICY PT NOW RULING OUT COVID. RECEIVED FROM DAY RN, PT WAS PLACED ON ISOLATION FOR R/O COVID-[address] ALLIE KUMARI. PT NOTED TO HAVE DRY COUGH WITH FEVER. PER PROTOCOL, SARS-COVID TESTING WAS PERFORMED BY MD HIMSELF. SPECIMEN SENT OUT, AWAITING FOR RESULT. PT WAS MOVED FROM A REGULAR ROOM INTO A NEGATIVE PRESSURE AIR ROOM 217. WITH ORDERS TO DO CONTINUOS PULSE OX MONITORING 24/ FOR THE PT, AND 1:1 SITTER WAS ORDERED BY . VS MONITORING. RN TEST PREPARER BUBBAR WAS NOTIFIED BY BANDAR SANDOVAL IN AM. PT NOW ON CONTACT/DROPLET AND AIRBORNE PRECAUTIONS, PPE UTILIZED.
--- NOTE | 2019-08-22 20:10 | NUR ---
BATH MIXER: RECEIVED REPORT FROM RADHA AT 1920. PT ON ISOLATION R/O COVID-19, SARS-COV-2 TESTING DONE. PT IS CONFUSED, A/O X1, ON CONTINUOUS PULSE OXIMETER, SITTER AT BED SIDE. ALTHOUGH CONFUSED, WHEN ASKED PT IF HE HAS PLANS OF HURTING HIMSELF OR COMMITTING ANY SUICIDE, PT STATED "NO". PT IS INCONTINENT. PER REPORT, PT EASILY GETS ANGRY, EASILY IRRITABLE, PT ON ASPIRATIONS PRECAUTIONS, KEPT HOB 30 DEGREES. NOTED MULTIPLE DISCOLORATIONS ON ARMS AND LEGS,SKIN TEAR NOTED ON LEFT ELBOW. SAFETY PRECAUTIONS FOR FALL INITIATED, SIDE RAILS UP X3 FOR SAFETY, WILL CONTINUE TO MONITOR PT [id number] FOR SAFETY AND ANY CHANGES IN BEHAVIOR.
[2019-08-22 20:30] VITALS: BP 138/63
[2019-08-22] MEDS: DONEPEZIL 5 MG TABLET PO SCH (21:02)
[2019-08-22] MEDS: PANTOPRAZOLE 40 MG TABLET.DR PO SCH (21:02)
[2019-08-22] MEDS: MIRTAZAPINE 15 MG TABLET PO SCH (21:02)
--- NOTE | 2019-08-22 21:03 | NUR ---
rn notes: pt r/o covid, ppe utilized, handwashing performed. informed straightener estelita holden about pt condition, and his duty for the night. pt currently on continuous pulse oximetry to measure o2 sat throughout the shift. hr shows 80-90, spo2 92-945 on ra. no sob noted. pt communicative, able to make his needs known. denies any pain or discomfort at this time. went to assess pt, pt awake, cooperative however cursing staff for repositioning him, pt leans towards on left side. vs taken and recorded. all due meds administered, pt able to swallow without choking. meds crushed , given to pt with apple sauce. assisted in feeding pt with pudding and cranberry juice, apple sauce. all consumed 100%. kept on aspiration precautions. assisted straightener in changing pt's diaper, repositioned in bed. kept hob 30 degrees since pt just had snack and just received his meds. stayed in pt's room providing care for max 20mins. ppe removed, hand washing performed. pt's inhaler/breo ellipta left in pt's locker to avoid cross contamination.
--- NOTE | 2019-08-22 21:53 | NUR ---
RN NOTES: RECEIVED CALL FROM PT'S DAUGHTER, PROVIDED WITH UPDATE REGARDING PT'S BEHAVIOR AND CONDITION. ALL QUESTIONS ANSWERED BASED ON RECENT IMAGING, LAB RESULT, MEDICATION AND MD'S PLAN OF CARE FOR PT. INFORMED DAUGHTER PT WITH SITTER, AND NOW ON CONTINUOUS PULSE OXIMETRY TO MEASURE PT'S OXYGENATION STATUS. PT AFEBRILE. DAUGHTER EXPRESSES HER GRATITUDE TO ALL THE STAFF WORKING DURING THIS PANDEMIC.
--- NOTE | 2019-08-23 00:09 | NUR ---
rn notes: security and engineering were called to please check the room, pt for r/o covid 19, negative pressure room. asked these personnel to please check if negative pressure properly working.
--- NOTE | 2019-08-23 01:00 | NUR ---
RN NOTES: ENGINEERING CAME TO CHECK PT'S ROOM, PER ENGINEERING, ROOM'S NEGATIVE PRESSURE IS PROPERLY WORKING.
[2019-08-23 04:00] VITALS: BP 122/59
--- NOTE | 2019-08-23 04:39 | NUR ---
RN NOTES/AM CARE: ASSISTED AQUATIC CENTRE MANAGER IN PROVIDING BED BATH TO PT AT 0400AM, VS TAKEN AND RECORDED, NOTED PT TO BE AFEBRILE. PT COOPERATIVE. PULSE OX SENSOR CHANGED, COMPLETE LINEN CHANGE PROVIDED.
--- NOTE | 2019-08-23 08:00 | NUR ---
RN NOTES RECEIVED PATIENT IN THE ROOM CONFUSED, A/O X1, R/O ISOLATION OF COVID-19. NO ACUTE RESPIRATORY DISTRESS, V/S STABLE, NO FEBRILE,. NO COUGHING, BUT POOR EATER. TOLERATED BREAKFAST 25% WITH ASSIST. PATIENT REFUSED PAIN. PATIENT INCONTINENT, TOTAL CARE, ADMINISTERED SCHEDULED MEDICATION, WITH CRUSHED AND MIXED WITH APPLE SAUCE, . 1:1 SITTER NEXT TO THE BED FOR SAFETY. ASSIST TURN AND REPOSTION Q 2 HR. PATIENT INCOMITANT USING DIAPER.
[2019-08-23 08:01] VITALS: BP 111/51
[2019-08-23] MEDS: CHOLECALCIFEROL 1,000 UNIT TABLET (VIT D3) PO SCH (09:45)
[2019-08-23] MEDS: risperiDONE 0.25 MG TABLET PO SCH ×3 (09:46→17:20)
[2019-08-23] MEDS: ASCORBIC ACID 500 MG TABLET PO SCH (09:46)
[2019-08-23] MEDS: CALCIUM CARB 250MG /VITAMIN D 1 UDTAB PO SCH ×2 (09:46→16:52)
[2019-08-23] MEDS: VITAMIN E 400 UNIT CAPSULE PO SCH (09:46)
[2019-08-23] MEDS: MEMANTINE HCL 5 MG TABLET PO SCH ×2 (09:48→16:53)
[2019-08-23] MEDS: FLUTICASONE/VILANTEROL 1 EACH BLST.W.DEV IH SCH ×2 (09:49→21:06)
[2019-08-23] MEDS: MINERAL OIL/PETROLATUM,WHITE 120 GM JAR TP SCH (09:49)
[2019-08-23] MEDS: Z GUARD REMEDY 2 OZ OINT TP SCH (09:50)
--- NOTE | 2019-08-23 12:53 | NUR ---
RN NOTES PATIENT STABLE HR-59/64, ROOM WAIT O2-95 % RA , REFUSED PAIN TOLERATED LUNCH 50% WITH ASSIST. ASSIST TURN AND REPOSTION Q 2 HR. 1:1 SITTER NEXT TO THE BED.
[2019-08-23] MEDS: BENZTROPINE MESYLATE (1 MG) 1 MG TABLET PO SCH (13:24)
[2019-08-23 16:00] VITALS: BP 115/53
[2019-08-23] MEDS: ASPIRIN 81 MG TAB.CHEW PO SCH (16:53)
--- NOTE | 2019-08-23 17:06 | NUR ---
RN-CO: DR KUMARI MADE AWARE OF THE RESULT OF SARS COV.
--- NOTE | 2019-08-23 17:10 | NUR ---
RN NOTES GET COVID -19 TEST RESULT NEGATIVE, NOTIFIED DNP ALLIE KUMARI AND PER HOSPITALIST, D/C ISOLATION, AND PULSE MONITORING. FAMILY NOTIFIED WELL.
--- NOTE | 2019-08-23 17:10 | NUR ---
RN-CO: PER DR KUMARI, DISCONTINUED 24 HOUR PULSE OX AND SITTER. NOTED.
[2019-08-23] MEDS: LOSARTAN POTASSIUM 50 MG TABLET PO SCH (17:21)
[2019-08-23] MEDS: METOPROLOL SUCCINATE 25 MG TAB.SR.24H PO SCH (17:21)
[2019-08-23 20:14] VITALS: BP 127/62
[2019-08-23] MEDS: DONEPEZIL 5 MG TABLET PO SCH (21:06)
[2019-08-23] MEDS: MIRTAZAPINE 15 MG TABLET PO SCH (21:06)
[2019-08-23] MEDS: PANTOPRAZOLE 40 MG TABLET.DR PO SCH (21:06)
--- NOTE | 2019-08-23 21:12 | NUR ---
RN NOTES DUE MEDS GIVEN, ATTEMPTING TO SPIT OUT CRUSHED MEDICATION, ASPIRATION PRECAUTION EMPHASIZED. PATIENT IS A LITTLE BIT IRRITABLE AT THIS TIME, KEEP COMFORTABLE, SAFETY MEASURES IN PLACE. WILL MONITOR ACCORDINGLY.
--- NOTE | 2019-08-24 00:18 | NUR ---
RN NOTES PATIENT STILL AWAKE, DOESN'T WANT TO BE BOTHERED, RESTING COMFORTABLY.
[2019-08-24 08:00] VITALS: BP 154/80
[2019-08-24] MEDS: ASCORBIC ACID 500 MG TABLET PO SCH (08:28)
[2019-08-24] MEDS: CALCIUM CARB 250MG /VITAMIN D 1 UDTAB PO SCH ×2 (08:28→17:14)
[2019-08-24] MEDS: ACETAMINOPHEN 325 MG TABLET PO PRN ×2 (08:28→19:50)
[2019-08-24] MEDS: CHOLECALCIFEROL 1,000 UNIT TABLET (VIT D3) PO SCH (08:28)
[2019-08-24] MEDS: MEMANTINE HCL 5 MG TABLET PO SCH ×2 (08:29→17:16)
[2019-08-24] MEDS: risperiDONE 0.25 MG TABLET PO SCH ×4 (09:00→17:15)
--- NOTE | 2019-08-24 09:00 | NUR ---
RN NOTE: AM TEMP 100.5 AND SPO2 93% ON RA. PT WITH MOIST COUGH. DR. KUMARI NOTIFIED. NO NEW ORDER AT CURRENT TIME.
[2019-08-24] MEDS: VITAMIN E 400 UNIT CAPSULE PO SCH (09:06)
[2019-08-24] MEDS: Z GUARD REMEDY 2 OZ OINT TP SCH (09:08)
[2019-08-24] MEDS: FLUTICASONE/VILANTEROL 1 EACH BLST.W.DEV IH SCH ×2 (09:21→21:13)
[2019-08-24] MEDS: MINERAL OIL/PETROLATUM,WHITE 120 GM JAR TP SCH (09:21)
--- NOTE | 2019-08-24 09:22 | NUR ---
RN NOTE: PT UNABLE TO FOLLOW DIRECTIONS FOR BREO INHALER
--- NOTE | 2019-08-24 10:30 | NUR ---
RN NOTE: REPEAT TEMP 98.5
--- NOTE | 2019-08-24 10:45 | NUR ---
RN NOTE: DR. BOLANOS IN TO ASSESS PT. ORDER FOR PROCALCITONIN AND CHEST X-RAY.
--- NOTE | 2019-08-24 11:15 | NUR ---
MD/SW CONTACT: contacted pts significant other Maira [phone] and discussed pts health decline and placement. informed S/O that pt has been having flu-like symptoms and had a fever this morning but tested negative for COVID-19. strongly recommended pt be discharged to a SNF as pt requires a higher level of care and believes that the board and care cannot appropriately manage pts care. strongly wishes for pt to be discharged to a board and care as she feels is is "safer and light cleaner." provided her with realistic expectations and S/O stated that she needs time to think of what the best discharge plan for pt will be. At this time due to pts health decline there is no discharge date and SW will continue working with S/O and for appropriate discharge planning.
--- NOTE | 2019-08-24 11:22 | NUR ---
INDIVIDUAL NOTE: In lieu of group therapy due to COVID 19, SW met with the pt at bedside but the pt was unable to engage in a conversation due to having Alzheimers and having flu-like symptoms. SW deemed the pt inappropriate for therapy.
[2019-08-24 11:57] LABS: BASOPHILS # (AUTO) 0.1 /CMM (0.0-0.2); BASOPHILS % (AUTO) 0.5 % (0.0-2.0); EOSINOPHILS % (AUTO) 0.4 % (0.0-6.0); HEMATOCRIT 39 % (39-51); HEMOGLOBIN 13.5 g/dL (13.5-17.5); LYMPHOCYTES # (AUTO) 0.7 /CMM (0.8-4.8); LYMPHOCYTES % (AUTO) 7.5 % (20.0-44.0); MEAN CORPUSCULAR HGB CONC 35 g/dl (31.0-36.0); MEAN CORPUSCULAR VOLUME 92 fL (80-96); MONOCYTES # (AUTO) 0.9 /CMM (0.1-1.30); MONOCYTES % (AUTO) 10.3 % (2.0-12.0); NEUTROPHILS # (AUTO) 7.4 /CMM (1.8-8.9); NEUTROPHILS % (AUTO) 81.3 % (43.0-81.0); PLATELET COUNT (AUTO) 158 /CMM (150-450); RED BLOOD CELL COUNT(AUTO) 4.25 MIL/uL (4.5-6.0); WHITE BLOOD COUNT (AUTO) 9.1 K/uL (4.3-11.0)
[2019-08-24 12:24] LABS: ALANINE AMINOTRANSFERASE 68 U/L (12-78); ALBUMIN 2.6 g/dL (3.4-5.0); ALKALINE PHOSPHATASE 76 U/L (46-116); ASPARTATE AMINOTRANSFERASE 48 U/L (15-37); BILIRUBIN,TOTAL 1.2 mg/dL (0.2-1.0); CALCIUM, SERUM 8.6 mg/dL (8.5-10.1); CARBON DIOXIDE 28 mmol/L (21-32); CHLORIDE 106 mmol/L (98-107); CREATININE 1.4 mg/dL (0.6-1.3); GLUCOSE 147 mg/dL (74-106); POTASSIUM 3.6 mmol/L (3.5-5.1); SODIUM SERUM 143 mmol/L (136-145); TOTAL PROTEIN, SERUM 6.5 g/dL (6.4-8.2); UREA NITROGEN, BLOOD 29 mg/dL (7-18)
[2019-08-24] MEDS: BENZTROPINE MESYLATE (1 MG) 1 MG TABLET PO SCH (12:28)
[2019-08-24 13:06] VITALS: BP 115/72
--- NOTE | 2019-08-24 13:08 | NUR ---
RN NOTE: REPEAT VS: 115/72, 92, 18, 98.2, 96% ON RA
--- NOTE | 2019-08-24 15:13 | NUR ---
RN NOTE: LAB AND CHEST X-RAY RESULTS GIVEN TO ALMAS WARREN. NO NEW ORDERS
[2019-08-24 16:00] VITALS: BP 127/70
[2019-08-24] MEDS: ASPIRIN 81 MG TAB.CHEW PO SCH (17:14)
[2019-08-24] MEDS: LOSARTAN POTASSIUM 50 MG TABLET PO SCH (17:14)
[2019-08-24] MEDS: METOPROLOL SUCCINATE 25 MG TAB.SR.24H PO SCH (17:15)
[2019-08-24 20:13] VITALS: BP 124/58
[2019-08-24] MEDS: PANTOPRAZOLE 40 MG TABLET.DR PO SCH (21:13)
[2019-08-24] MEDS: DONEPEZIL 5 MG TABLET PO SCH (21:13)
[2019-08-25 08:00] VITALS: BP 120/72
[2019-08-25] MEDS: MEMANTINE HCL 5 MG TABLET PO SCH ×2 (08:20→16:49)
[2019-08-25] MEDS: CHOLECALCIFEROL 1,000 UNIT TABLET (VIT D3) PO SCH (08:20)
[2019-08-25] MEDS: risperiDONE 0.25 MG TABLET PO SCH ×2 (08:20→16:49)
[2019-08-25] MEDS: CALCIUM CARB 250MG /VITAMIN D 1 UDTAB PO SCH ×2 (08:20→16:49)
[2019-08-25] MEDS: ASCORBIC ACID 500 MG TABLET PO SCH (08:20)
[2019-08-25] MEDS: VITAMIN E 400 UNIT CAPSULE PO SCH (08:20)
[2019-08-25] MEDS: MINERAL OIL/PETROLATUM,WHITE 120 GM JAR TP SCH (08:32)
[2019-08-25] MEDS: Z GUARD REMEDY 2 OZ OINT TP SCH (08:32)
--- NOTE | 2019-08-25 09:00 | NUR ---
RN NOTE- PT IN BED NO ACUTE DISTRESS NOTED. AFEBRILE 97.6 02 SAT 96% PT REPOSITIONED AND HEAD OF BE ELEVATED. PT IS CONFUSED AND DISORIENTED. PT IS UNABLE TO VERBALIZE SPECIFIC NEEDS PT COMPLIANT WITH MEDICATION ADMINISTRATION WITH CRUSHED MEDS. PT IS BED BOUND AT CURRENT TIME.OPPOSITIONAL TO CARE. CONFUSED
[2019-08-25] MEDS: FLUTICASONE/VILANTEROL 1 EACH BLST.W.DEV IH SCH ×2 (09:55→21:54)
--- NOTE | 2019-08-25 10:48 | NUR ---
FAMILY CONTACT: SW contacted pts significant other Maira [phone] to discuss pts discharge plan. S/O became very upset stating that she needed to make sure pt was 100% cleared from COVID-19 and needed to receive a second screening as that is what the psychiatrist stated. SW explained that she was present when psychiatrist called her yesterday and informed her that psychiatrist did not state that pt will be receiving a second screening. S/O began yelling and telling SW that she writes everything that is being told to her over the phone. SW explained that pt has been screened and results were negative, SW also explained that pts second set of chest x-rays came back with no abnormalities and informed her that this morning pt did not have a fever. SW stated that she would have psychiatrist and Security Operations Manager call her to discuss pts medical issues.
[2019-08-25] MEDS: AZITHROMYCIN 250 MG TABLET PO SCH (11:39)
--- NOTE | 2019-08-25 11:50 | NUR ---
FACILITY CONTACT: MORRO faxed 602 Form and clinicals to Jasmine, studio owner of [facility] [address] . MORRO spoke with Jasmine and provide her with clinical information. MORRO informed her pt will be discharging by the end of this week. MORRO also informed her that pt will need transportation as hospital cannot provide transportation for pt. Jasmine also asked MORRO to arrange getting pt a hospital bed, MORRO informed her that pts S/O will have to arrange that on her own as pts Medicare insurance does not cover hospital beds and she will have to pay out of pocket. MORRO informed Jasmine that MORRO has already provided S/O with this information and stated S/O will have to purchase or rent a bed at a local medical supply store. Jasmine understood and states she will arrange that with S/O.
[2019-08-25 12:13] LABS: BASOPHILS # (AUTO) 0.1 /CMM (0.0-0.2); BASOPHILS % (AUTO) 0.7 % (0.0-2.0); EOSINOPHILS % (AUTO) 2.1 % (0.0-6.0); HEMATOCRIT 41 % (39-51); HEMOGLOBIN 13.7 g/dL (13.5-17.5); LYMPHOCYTES # (AUTO) 0.8 /CMM (0.8-4.8); LYMPHOCYTES % (AUTO) 10.1 % (20.0-44.0); MEAN CORPUSCULAR HGB CONC 33 g/dl (31.0-36.0); MEAN CORPUSCULAR VOLUME 93 fL (80-96); MONOCYTES # (AUTO) 0.9 /CMM (0.1-1.30); MONOCYTES % (AUTO) 10.4 % (2.0-12.0); NEUTROPHILS # (AUTO) 6.3 /CMM (1.8-8.9); NEUTROPHILS % (AUTO) 76.7 % (43.0-81.0); PLATELET COUNT (AUTO) 192 /CMM (150-450); RED BLOOD CELL COUNT(AUTO) 4.44 MIL/uL (4.5-6.0); WHITE BLOOD COUNT (AUTO) 8.3 K/uL (4.3-11.0)
[2019-08-25] MEDS: BENZTROPINE MESYLATE (1 MG) 1 MG TABLET PO SCH (12:27)
[2019-08-25 12:45] LABS: C-REACTIVE PROTEIN 20.9 mg/dL (0.0-0.9)
--- NOTE | 2019-08-25 13:05 | NUR ---
RN NOTE- DRESSING CHANGE TO RT FOREARM. AREA CLEANSED W NS AND 4X4 GAUZE. NO PURULENCE, NO EXUDATE. NO SX OF INFECTION. MEPILEX APPLIED W KERLIX. TAPED SECURELY. TOLERATED WELL.
[2019-08-25 16:00] VITALS: BP 132/65
[2019-08-25] MEDS: ASPIRIN 81 MG TAB.CHEW PO SCH (17:20)
[2019-08-25] MEDS: LOSARTAN POTASSIUM 50 MG TABLET PO SCH (17:21)
[2019-08-25] MEDS: METOPROLOL SUCCINATE 25 MG TAB.SR.24H PO SCH (17:23)
[2019-08-25 20:18] VITALS: BP 130/69
[2019-08-25] MEDS: DONEPEZIL 5 MG TABLET PO SCH (21:54)
[2019-08-25] MEDS: PANTOPRAZOLE 40 MG TABLET.DR PO SCH (21:54)
[2019-08-26 06:08] LABS: CALCIUM, SERUM 8.5 mg/dL (8.5-10.1); CREATININE 1.1 mg/dL (0.6-1.3); POTASSIUM 3.6 mmol/L (3.5-5.1)
[2019-08-26 07:20] LABS: BASOPHILS % (AUTO) 0.6 % (0.0-2.0); HEMATOCRIT 40 % (39-51); HEMOGLOBIN 13.2 g/dL (13.5-17.5); LYMPHOCYTES # (AUTO) 0.9 /CMM (0.8-4.8); LYMPHOCYTES % (AUTO) 13.8 % (20.0-44.0); MEAN CORPUSCULAR HGB CONC 33 g/dl (31.0-36.0); MEAN CORPUSCULAR VOLUME 94 fL (80-96); MONOCYTES # (AUTO) 0.6 /CMM (0.1-1.30); MONOCYTES % (AUTO) 8.8 % (2.0-12.0); NEUTROPHILS # (AUTO) 4.7 /CMM (1.8-8.9); NEUTROPHILS % (AUTO) 73.8 % (43.0-81.0); PLATELET COUNT (AUTO) 198 /CMM (150-450); WHITE BLOOD COUNT (AUTO) 6.3 K/uL (4.3-11.0)
--- NOTE | 2019-08-26 07:30 | NUR ---
RN GPS NOTES PT IN BED, ASLEEP, EASY TO AROUSE, ALERT TO SELF, CONFUSED, MUMBLES WORDS, KEPT WARM AND COMFORTABLE IN BED, REPOSITIONED FOR COMFORT.
[2019-08-26 08:00] VITALS: BP_SYST 112; BP_SYST 150; BP_DIAS 57; BP_DIAS 91
[2019-08-26] MEDS: FLUTICASONE/VILANTEROL 1 EACH BLST.W.DEV IH SCH (09:17)
[2019-08-26] MEDS: VITAMIN E 400 UNIT CAPSULE PO SCH (09:17)
[2019-08-26] MEDS: MEMANTINE HCL 5 MG TABLET PO SCH ×2 (09:17→17:25)
[2019-08-26] MEDS: MINERAL OIL/PETROLATUM,WHITE 120 GM JAR TP SCH (09:17)
[2019-08-26] MEDS: risperiDONE 0.25 MG TABLET PO SCH (09:17)
[2019-08-26] MEDS: CHOLECALCIFEROL 1,000 UNIT TABLET (VIT D3) PO SCH (09:18)
[2019-08-26] MEDS: CALCIUM CARB 250MG /VITAMIN D 1 UDTAB PO SCH ×2 (09:18→17:25)
[2019-08-26] MEDS: ASCORBIC ACID 500 MG TABLET PO SCH (09:18)
[2019-08-26] MEDS: Z GUARD REMEDY 2 OZ OINT TP SCH (09:24)
--- NOTE | 2019-08-26 10:37 | NUR ---
GPS/RN-NOTES RECEIVED T.O ORDER FROM DR. ABARCA TO TRANSFER PATIENT TO [facility] FOR DEHYDRATION, DR. BOLANOS IN THE UNIT AND MADE AWARE WITH VERBAL ORDER TO DISCONTINUE HOLD AND ALL PSYCHOTROPIC MEDICATIONS. NOTED AND CARRIED OUT.
--- NOTE | 2019-08-26 10:45 | NUR ---
FAMILY CONTACT: MORRO contacted pts significant other Maira [phone] to inform her pt is being transferred to MED/SURG due to Dehydration. MORRO informed her that pts hold will be broken and discharge will be coordinated by unit rn case manager. MORRO also informed her that 602 form and clinicals were faxed to the board and Care. MORRO transferred the call to the nurses station as she had additional medical questions that SW was unable to answer.
--- NOTE | 2019-08-26 10:52 | NUR ---
DISCHARGE NOTE: pt will be transferred on this present day to MED/SURG due to dehydration. Pts hold will be broken and unit caser up will coordinate discharge to [facility] [address] [facility] [address] once pt is medically cleared or discharge.
[2019-08-26] MEDS: AZITHROMYCIN 250 MG TABLET PO SCH (11:15)
--- NOTE | 2019-08-26 13:28 | NUR ---
RN GPS NOTES PT FOR TRANSF[facility], AWAITING BED AVAILABILITY, CHARGE NURSE AND FITNESS DIRECTOR AWARE.
[2019-08-26] MEDS ORDERED: ALLA266C2 TP (14:04)
[2019-08-26] MEDS ORDERED: MAGN400O6 PO (14:04)
[2019-08-26] MEDS ORDERED: MINE454C11 TP (14:04)
[2019-08-26] MEDS ORDERED: MAG30ORA PO (14:04)
[2019-08-26] MEDS ORDERED: FLUT1BLS IH (14:04)
[2019-08-26] MEDS ORDERED: PANT40TA2 PO (14:04)
[2019-08-26] MEDS ORDERED: AZIT500T4 PO (14:04)
[2019-08-26] MEDS ORDERED: LOSA100T31 PO (14:04)
[2019-08-26] MEDS ORDERED: ACET-868 PO (14:04)
[2019-08-26 16:00] VITALS: BP 136/78
[2019-08-26] MEDS ORDERED: BENZTROPINE MESYLATE (1 MG) 1 MG TABLET PO SCH (17:00)
[2019-08-26 17:25] VITALS: BP 136/78
[2019-08-26] MEDS: METOPROLOL SUCCINATE 25 MG TAB.SR.24H PO SCH (17:25)
[2019-08-26] MEDS: LOSARTAN POTASSIUM 50 MG TABLET PO SCH (17:25)
[2019-08-26] MEDS: ASPIRIN 81 MG TAB.CHEW PO SCH (17:26)
--- NOTE | 2019-08-26 17:55 | NUR ---
RN GPS NOTES PT IN BED, AWAKE, ALERT TO SELF, CONFUSED, NOT IN PAIN OR DISTRESS, FOR DISCHARGE TO [facility], REPORT GIVEN TO SEPTEMBER RN, PT TRANSPORTED VIA BED WITH ALL BELONGINGS TO [facility] ROOM 204-2, IN STABLE CONDITION.
--- NOTE | 2019-08-26 17:59 | NUR ---
GPS/RN-NOTES PATIENT'S SIGNIFICANT OTHER INDERJIT SCHWARTZ ([phone]) MADE AWARE OF PATIENT DISCHARGE TO [facility].
[2019-08-27] MEDS ORDERED: risperiDONE 0.25 MG TABLET PO SCH (22:00)
== END 2019-08-26 17:57 | disposition short-term general hospital (02) | DRG 885 ==
LOC: ER 12:08 → GPS 15:15
PROVIDERS: ADMIT Psychiatry & Neurology Psychosomatic Medicine; ATTEND Internal Medicine
DX: F25.0 Schizoaffective disorder, bipolar type (principal); F01.50 Vascular dementia, unspecified severity, without behavioral disturbance, psychotic disturbance, mood disturbance, and anxiety; N17.0 Acute kidney failure with tubular necrosis; F23 Brief psychotic disorder; F03.90 Unspecified dementia, unspecified severity, without behavioral disturbance, psychotic disturbance, mood disturbance, and anxiety; F41.9 Anxiety disorder, unspecified; F32.9 Major depressive disorder, single episode, unspecified; I10 Essential (primary) hypertension; E78.5 Hyperlipidemia, unspecified; Z79.82 Long term (current) use of aspirin; J40 Bronchitis, not specified as acute or chronic; R62.7 Adult failure to thrive; Z73.6 Limitation of activities due to disability; R53.1 Weakness; F39 Unspecified mood [affective] disorder; Z91.81 History of falling
CPT/HCPCS: 36415; 71045-TC; 80048-TC; 80053-TC; 80061-TC; 80076-TC; 80305; 81000-TC; 82140-TC; 82550-TC; 82728-TC; 82962-TC; 83615-TC; 83880; 84443-TC; 85025-TC; 85378-TC; 86140-TC; 87081-TC; 87086-TC; 97110-TC; 97530-TC; A4349; G0480; U0002

== ENCOUNTER 2019-08-26 11:36 | Inpatient (IN) | payer MEDICARE, BC ==
[~2019-08-26] VITALS: Ht 177.8 cm; Wt 75.7 kg
[~2019-08-26 11:36] MED LIST changes: -AMLO2.5T4 PO; +ASCO-352 PO; +CALC-7 PO; +CHOL100040 PO; +DONE10TA44 PO; +FLUT1DIS3 IH; -LOSA100T31 PO; +MEMA10TA PO; +METO25TA3 PO; +OLME40TA12 PO; +VITA400C19 PO
[2019-08-26] MEDS ORDERED: ACETAMINOPHEN 325 MG TABLET PO PRN (13:00)
[2019-08-26] MEDS ORDERED: Z GUARD REMEDY 2 OZ OINT TP PRN (13:00)
[2019-08-26] MEDS ORDERED: ONDANSETRON HCL/PF 4 MG/2 ML VIAL IVP PRN (13:00)
[2019-08-26] MEDS ORDERED: MAGNESIUM HYDROXIDE 30 ML UDC PO PRN (13:00)
[2019-08-26] MEDS ORDERED: HYDROCODONE/APAP 5/325MG 1 EACH TABLET PO PRN (13:00)
[2019-08-26] MEDS ORDERED: MAG HYDROX/AL HYDROX/SIMETH 30 ML UDC PO PRN (13:00)
[2019-08-26] MEDS ORDERED: AZIT500T4 PO (14:04)
[2019-08-26] MEDS ORDERED: ACET-868 PO (14:04)
[2019-08-26] MEDS ORDERED: MAG30ORA PO (14:04)
[2019-08-26] MEDS ORDERED: PANT40TA2 PO (14:04)
[2019-08-26] MEDS ORDERED: MINE454C11 TP (14:04)
[2019-08-26] MEDS ORDERED: FLUT1BLS IH (14:04)
[2019-08-26] MEDS ORDERED: MAGN400O6 PO (14:04)
[2019-08-26] MEDS ORDERED: LOSA100T31 PO (14:04)
[2019-08-26] MEDS ORDERED: ALLA266C2 TP (14:04)
[2019-08-26] MEDS: ASPIRIN 81 MG TAB.CHEW PO SCH (18:00)
[2019-08-26] MEDS: LOSARTAN POTASSIUM 50 MG TABLET PO SCH (18:00)
[2019-08-26] MEDS: METOPROLOL SUCCINATE 25 MG TAB.SR.24H PO SCH (18:00)
[2019-08-26 18:05] VITALS: BP 110/73
[2019-08-26] MEDS: FLUTICASONE/VILANTEROL 1 EACH BLST.W.DEV IH SCH (18:27)
[2019-08-26] MEDS: CHOLECALCIFEROL 1,000 UNIT TABLET (VIT D3) PO SCH (18:27)
[2019-08-26] MEDS: MEMANTINE HCL 5 MG TABLET PO SCH (18:27)
[2019-08-26] MEDS: CALCIUM CARB 250MG /VITAMIN D 1 UDTAB PO SCH (18:28)
[2019-08-26] MEDS: IV NS 0.9% 1,000 ML IV PRN (18:37)
--- NOTE | 2019-08-26 19:20 | NUR ---
MS BOOKSTORE CLERK NOTES RECEIVED PT FROM GPS DEPT, ARRIVED IN THE UNIT AT 1805. PT A/OX1. PT TOLERATING RA, WITH NO ACUTE RESPIRATORY DISTRESS NOTED. VITALS SIGNS TAKEN AND RECORDED. PT DENIES ANY PAIN OR DISCOMFORT AT THIS TIME. PIV STARTED TO R HAND G20, INTACT AND OPERATIONAL; STARTED NS AT 75ML/HR, INFUSING WELL. HISTORY UNABLE TO PROVIDE BY PT, ALLEY GATHERED FROM PREVIOUS ADMISSION. PT KEPT COMFORTABLE IN BED. PER GPS RN/TABATHA PT TOOK 5PM MEDS BEFORE COMING TO THE UNIT, EXCEPT BREO AND NIACIN. PT OFFERED MED AND REFUSED IT. ALL NEEDS AND CARE ATTENDED. ADMISSION SKIN ASSESSMENT ENDORSED TO INCOMING NIGHT NURSE/DORIAN/RN. PT KEPT COMFORTABLE IN BED. CALL LIGHT KEPT WITHIN REACH. PT'S BED IN LOWEST, LOCKED POSITION WITH SRX3. ENDORSE TO NIGHT NURSE FOR JAIMEE.
--- NOTE | 2019-08-26 19:30 | NUR ---
MS/RN OPENING NOTES: RECEIVED PT A/OX1. AWAKE IN BED, PT TOLERATING RA, NO ACUTE RESPIRATORY DISTRESS NOTED. PT DENIES ANY PAIN OR DISCOMFORT AT THIS TIME. PIV LOCATED AT THE R HAND G20, INTACT AND OPERATIONAL; STARTED NS AT 75ML/HR, INFUSING WELL. PT KEPT COMFORTABLE IN BED. ALL NEEDS AND CARE ATTENDED. SKIN ASSESS ASSESSMENT DONE. PICTURES TAKEN AND DOCUMENTED IN THE CHART. PT KEPT COMFORTABLE IN BED. CALL LIGHT KEPT WITHIN REACH. PT'S BED IN LOWEST, LOCKED POSITION WITH SRX3. WILL CONTINUE TO MONITOR ACCORDINGLY.
[2019-08-26 20:12] VITALS: BP 110/72
[2019-08-26 20:34] VITALS: BP 110/72
[2019-08-26] MEDS: PANTOPRAZOLE 40 MG TABLET.DR PO SCH (21:26)
[2019-08-26] MEDS: DONEPEZIL 5 MG TABLET PO SCH (21:26)
--- NOTE | 2019-08-27 06:22 | NUR ---
MS/RN CLOSING NOTES: PT REMAINS A/OX1. AWAKE IN BED, PT TOLERATING RA, NO ACUTE RESPIRATORY DISTRESS NOTED. IN STABLE CONDITION. DENIES ANY PAIN OR DISCOMFORT AT THIS TIME. PIV AT THE R HAND G20, INTACT AND RUNNING NS AT 75ML/HR. PT KEPT COMFORTABLE IN BED. ALL NEEDS AND CARE ATTENDED. ALL DUE MEDS GIVEN ORDERED. KEPT WARM AND COMFORTABLE IN BED. CALL LIGHT KEPT WITHIN REACH. PT'S BED IN LOWEST, LOCKED POSITION WITH SRX3. WILL ENDORSE TO DAY SHIFT FOR JAIMEE.
[2019-08-27] MEDS: IV NS 0.9% 1,000 ML IV PRN ×2 (06:32→19:39)
[2019-08-27 06:33] LABS: BASOPHILS # (AUTO) 0.1 /CMM (0.0-0.2); BASOPHILS % (AUTO) 1.2 % (0.0-2.0); EOSINOPHILS % (AUTO) 4.3 % (0.0-6.0); HEMATOCRIT 39 % (39-51); HEMOGLOBIN 12.9 g/dL (13.5-17.5); LYMPHOCYTES # (AUTO) 0.9 /CMM (0.8-4.8); MEAN CORPUSCULAR HGB CONC 33 g/dl (31.0-36.0); MEAN CORPUSCULAR VOLUME 93 fL (80-96); MONOCYTES # (AUTO) 0.4 /CMM (0.1-1.30); MONOCYTES % (AUTO) 7.8 % (2.0-12.0); NEUTROPHILS % (AUTO) 70.7 % (43.0-81.0); PLATELET COUNT (AUTO) 210 /CMM (150-450); RED BLOOD CELL COUNT(AUTO) 4.17 MIL/uL (4.5-6.0); WHITE BLOOD COUNT (AUTO) 5.7 K/uL (4.3-11.0)
[2019-08-27 06:53] LABS: CALCIUM, SERUM 8.2 mg/dL (8.5-10.1); PHOSPHORUS 3.6 mg/dL (2.5-4.9); POTASSIUM 3.5 mmol/L (3.5-5.1)
--- NOTE | 2019-08-27 07:30 | NUR ---
RN MS NOTES PT IN BED, AWAKE, ALERT TO SELF, NO SIGN OF PAIN, NOT IN DISTRESS, CALL LIGHT WITHIN REACH, IV FLUIDS INFUSING WELL, KEPT WARM AND COMFORTABLE IN BED.
[2019-08-27 08:00] VITALS: BP 146/79
[2019-08-27] MEDS: CALCIUM CARB 250MG /VITAMIN D 1 UDTAB PO SCH ×2 (09:06→16:42)
[2019-08-27] MEDS: ASCORBIC ACID 500 MG TABLET PO SCH (09:06)
[2019-08-27] MEDS: MEMANTINE HCL 5 MG TABLET PO SCH ×2 (09:06→16:43)
[2019-08-27] MEDS: AZITHROMYCIN 250 MG TABLET PO SCH (10:34)
--- NOTE | 2019-08-27 12:00 | NUR ---
RN MS NOTES SPOKE WITH PT'S DPOA INDERJIT SCHWARTZ, CONFIRMED PT'S CODE STATUS DNR/DNI, ADVANCE DIRECTIVES IN CHART, INFORMED, ORDER GIVEN.
[2019-08-27] MEDS: VITAMIN E 400 UNIT CAPSULE PO SCH (12:15)
[2019-08-27] MEDS: FLUTICASONE/VILANTEROL 1 EACH BLST.W.DEV IH SCH ×2 (12:15→17:07)
--- NOTE | 2019-08-27 13:00 | NUR ---
RN MS NOTES PT IN BED, AWAKE, ALERT TO SELF, VERBALLY RESPONSIVE, CONFUSED, SEEN BY DR. ABARCA, ALSO SEEN AND ASSESSED BY SPEECH THERAPIST, NEW DIET ORDERED, CALL LIGHT WITHIN REACH, ASSISTED IN TURNING AND REPOSITIONING.
[2019-08-27 16:00] VITALS: BP 126/73
[2019-08-27] MEDS: CHOLECALCIFEROL 1,000 UNIT TABLET (VIT D3) PO SCH (16:45)
[2019-08-27] MEDS: METOPROLOL SUCCINATE 25 MG TAB.SR.24H PO SCH (17:07)
[2019-08-27] MEDS: LOSARTAN POTASSIUM 50 MG TABLET PO SCH (17:07)
[2019-08-27] MEDS: ASPIRIN 81 MG TAB.CHEW PO SCH (17:07)
--- NOTE | 2019-08-27 18:35 | NUR ---
RN MS NOTES PT IN BED, AWAKE, ALERT TO SELF, RESPIRATIONS NORMAL, NO SIGN OF PAIN OR ANY DISCOMFORT, ASSISTED WITH MEALS, ASPIRATION PRECAUTIONS OBSERVED, PM CARE PROVIDED, TURNED AND REPOSITIONED, PM MEDS GIVEN, ALL NEEDS ATTENDED.
--- NOTE | 2019-08-27 19:10 | NUR ---
RN medsurg opening notes Received Pt from morning nurse. Pt is resting in bed comfortably. Pt is alert and orientedX1. Respiration is normal in room air. No SOB. NO S/S of distress noted. IV sites at R hand# 20 is clean, intact, patent and infusing well NS@ 75 ml/hr. Safety precautions is maintained. Bed at low position, brakes locked, side rails upX2, bed alarm is on and call light is within reach. Will continue to monitor.
[2019-08-27 20:00] VITALS: BP 134/76
[2019-08-27] MEDS: DONEPEZIL 5 MG TABLET PO SCH (22:04)
[2019-08-27] MEDS: PANTOPRAZOLE 40 MG TABLET.DR PO SCH (22:04)
--- NOTE | 2019-08-28 02:36 | NUR ---
RN medsur notes Pt removed IV sites on R hand. Pt stated "It hurt. I don't want it." with a loud voice. Made aware risks and benefits. Offered multiple times. Pt keep refusing and easily agitated. Will try again.
--- NOTE | 2019-08-28 04:40 | NUR ---
RN medsurg notes Inserted new IV sites at R forearm#22 with good blood returned. New IV sites is clean, intact, patent and flush without resistance.
--- NOTE | 2019-08-28 07:00 | NUR ---
RN medsurg closing notes Pt is resting in bed comfortably. Pt is alert and orientedx1. Respiration is normal in room air. No SOB. No S/S of distress noted. IV sites at RFA# 22 is clean, intact, patent and infusing well NS@ 75ml/hr. VS is stable. Routine meds were given as ordered. Kept Pt clean, dry and comfortable. All needs met and attended. Safety precautions is maintained. Bed at low position, brakes locked, side rails upX2 and call light is within reach. Will endorse to morning nurse for JAIMEE
[2019-08-28 08:00] VITALS: BP 153/63
--- NOTE | 2019-08-28 08:00 | NUR ---
m/s advertising specialist: initial assessment received pt in bed awake, alert to self only. reality orientation provided prn. no distress noted. will continue to monitor.
[2019-08-28] MEDS: CALCIUM CARB 250MG /VITAMIN D 1 UDTAB PO SCH ×2 (08:07→17:10)
[2019-08-28] MEDS: VITAMIN E 400 UNIT CAPSULE PO SCH (08:07)
[2019-08-28] MEDS: FLUTICASONE/VILANTEROL 1 EACH BLST.W.DEV IH SCH ×2 (08:07→17:09)
[2019-08-28] MEDS: ASCORBIC ACID 500 MG TABLET PO SCH (08:07)
[2019-08-28] MEDS: MEMANTINE HCL 5 MG TABLET PO SCH ×2 (08:07→17:10)
[2019-08-28 09:02] LABS: CALCIUM, SERUM 8.2 mg/dL (8.5-10.1); MAGNESIUM 2.1 mg/dL (1.8-2.4); POTASSIUM 3.8 mmol/L (3.5-5.1)
[2019-08-28 09:06] LABS: BASOPHILS # (AUTO) 0.1 /CMM (0.0-0.2); BASOPHILS % (AUTO) 0.8 % (0.0-2.0); EOSINOPHILS % (AUTO) 3.1 % (0.0-6.0); HEMATOCRIT 40 % (39-51); HEMOGLOBIN 13.4 g/dL (13.5-17.5); LYMPHOCYTES # (AUTO) 0.9 /CMM (0.8-4.8); LYMPHOCYTES % (AUTO) 13.4 % (20.0-44.0); MEAN CORPUSCULAR HGB CONC 33 g/dl (31.0-36.0); MEAN CORPUSCULAR VOLUME 94 fL (80-96); MONOCYTES # (AUTO) 0.5 /CMM (0.1-1.30); MONOCYTES % (AUTO) 6.7 % (2.0-12.0); NEUTROPHILS # (AUTO) 5.2 /CMM (1.8-8.9); PLATELET COUNT (AUTO) 224 /CMM (150-450); RED BLOOD CELL COUNT(AUTO) 4.32 MIL/uL (4.5-6.0); WHITE BLOOD COUNT (AUTO) 6.8 K/uL (4.3-11.0)
--- NOTE | 2019-08-28 09:21 | NUR ---
WOUND CARE CONSULT: PT PRESENTS WITH RASH TO INNER BUTTOCKS WITH PEELING SKIN, LEFT HEEL INTACT DEEP TISSUE INJURY, MULTIPLE AREAS OF SKIN DISCOLORATION/BRUISES, DRY SCABS AND DRY SKIN TO LOWER EXTREMITIES, PRESENT ON ADMISSION. RECOMMENDATIONS MADE FOR SKIN PROTECTION AND WOUND CARE. DISCUSSED WITH NURSING STAFF. WILL SEE PRN. Sylvester Carter IN AGREEMENT WITH PLAN OF CARE. [facility] BED TO BE PLACED. Addendum: 08/28/19 at 0923 by SPRING AGUILLON WNDNU Amended: Links added.
--- NOTE | 2019-08-28 11:00 | NUR ---
m/s addictions recovery specialist: notes transferred pt from bed to bed (isoflex). kept comfortable. turned and repositioned. reality orientation provided prn. will continue to monitor.
--- NOTE | 2019-08-28 12:00 | NUR ---
m/s mixed livestock farm worker: notes staff assisting with lunch. hob elevated. in no apparent distress noted. will continue to monitor.
[2019-08-28] MEDS: AZITHROMYCIN 250 MG TABLET PO SCH (12:17)
[2019-08-28] MEDS: MINERAL OIL/PETROLATUM,WHITE 120 GM JAR TP SCH (12:21)
[2019-08-28] MEDS: CLOTRIMAZOLE 1% 15 GM TUBE TP SCH ×2 (12:21→17:14)
[2019-08-28] MEDS: IV NS 0.9% 1,000 ML IV PRN (13:55)
--- NOTE | 2019-08-28 14:00 | NUR ---
m/s cartridge assembling machine adjuster: notes incontinent care rendered. turned and repositioned. kept comfortable. place call light within reach. will monitor.
[2019-08-28 16:00] VITALS: BP 136/77
--- NOTE | 2019-08-28 16:00 | NUR ---
m/s machine clothing replacer: notes jerod (nathan) called and pt for d'c planning home tomorrow. is aware and will pick him up when ready.
[2019-08-28] MEDS: CHOLECALCIFEROL 1,000 UNIT TABLET (VIT D3) PO SCH (17:09)
[2019-08-28] MEDS: LOSARTAN POTASSIUM 50 MG TABLET PO SCH (17:10)
[2019-08-28] MEDS: ASPIRIN 81 MG TAB.CHEW PO SCH (17:10)
[2019-08-28] MEDS: METOPROLOL SUCCINATE 25 MG TAB.SR.24H PO SCH (17:10)
--- NOTE | 2019-08-28 17:30 | NUR ---
m/s seamer operator: notes staff assisting pt with dinner. hob elevated. no distress noted. needs attended.
--- NOTE | 2019-08-28 19:10 | NUR ---
MS RN NOTES RECEIVED PT IN BED AND AWAKE. PT ORIENTED TO SELF. RESPIRATIONS EVEN AND UNLABORED WITH NO S/S OF ACUTE DISTRESS OR SOB NOTED. NO S/S OF PAIN AT THIS TIME. PT NOTED WITH RFA #22G PATENT AND INTACT INFUSING NS @75CC/HR. SAFETY MEASURES IN PLACE WITH BED IN LOWEST LOCKED POSITION WITH SIDE RAILS UP X2. CALL LIGHT WITHIN REACH. WILL CONTINUE TO MONITOR.
--- NOTE | 2019-08-28 19:20 | NUR ---
m/s sandblast or shotblast equipment tender: notes bedside report given to dary (rn) for continuity of care.
[2019-08-28 20:52] VITALS: BP 131/77
[2019-08-28] MEDS: DONEPEZIL 5 MG TABLET PO SCH (21:32)
[2019-08-28] MEDS: PANTOPRAZOLE 40 MG TABLET.DR PO SCH (21:32)
[2019-08-29] MEDS: IV NS 0.9% 1,000 ML IV PRN (03:40)
[2019-08-29 06:25] LABS: BASOPHILS # (AUTO) 0.1 /CMM (0.0-0.2); BASOPHILS % (AUTO) 0.9 % (0.0-2.0); EOSINOPHILS % (AUTO) 4.5 % (0.0-6.0); HEMATOCRIT 37 % (39-51); HEMOGLOBIN 12.6 g/dL (13.5-17.5); LYMPHOCYTES % (AUTO) 14.2 % (20.0-44.0); MEAN CORPUSCULAR HGB CONC 34 g/dl (31.0-36.0); MEAN CORPUSCULAR VOLUME 93 fL (80-96); MONOCYTES # (AUTO) 0.5 /CMM (0.1-1.30); MONOCYTES % (AUTO) 6.6 % (2.0-12.0); NEUTROPHILS % (AUTO) 73.8 % (43.0-81.0); PLATELET COUNT (AUTO) 227 /CMM (150-450); RED BLOOD CELL COUNT(AUTO) 3.95 MIL/uL (4.5-6.0); WHITE BLOOD COUNT (AUTO) 6.8 K/uL (4.3-11.0)
[2019-08-29 06:38] LABS: CALCIUM, SERUM 7.9 mg/dL (8.5-10.1); CREATININE 0.9 mg/dL (0.6-1.3); MAGNESIUM 1.7 mg/dL (1.8-2.4); PHOSPHORUS 3.2 mg/dL (2.5-4.9); POTASSIUM 3.5 mmol/L (3.5-5.1)
--- NOTE | 2019-08-29 07:14 | NUR ---
MS RN NOTES PT IN BED AND AWAKE. PT ORIENTED TO SELF. RESPIRATIONS EVEN AND UNLABORED WITH NO S/S OF ACUTE DISTRESS OR SOB NOTED THROUGHOUT SHIFT. NO S/S OF PAIN AT THIS TIME. PT NOTED WITH RFA #22G PATENT AND INTACT INFUSING NS @75CC/HR. PT KEPT CLEAN, DRY, AND COMFORTABLE. SAFETY MEASURES IN PLACE WITH BED IN LOWEST LOCKED POSITION WITH SIDE RAILS UP X2. CALL LIGHT WITHIN REACH. WILL ENDORSE TO ONCOMING NURSE FOR JAIMEE.
--- NOTE | 2019-08-29 07:42 | NUR ---
MS RN OPENING NOTE RECEIVED PATIENT IN BED SLEEPING COMFORTABLY. PATIENT IN NO ACUTE DISTRESS. NO SOB NOTED. PATIENT BREATHING IS EVEN AND UNLABORED. SAFETY PRECAUTIONS IN PLACE. PATIENT BED IS LOCKED AND IN LOWEST POSITION. CALL LIGHT WITHIN REACH. WILL CONTINUE TO MONITOR.
[2019-08-29] MEDS: VITAMIN E 400 UNIT CAPSULE PO SCH (09:07)
[2019-08-29] MEDS: FLUTICASONE/VILANTEROL 1 EACH BLST.W.DEV IH SCH (09:07)
[2019-08-29] MEDS: MEMANTINE HCL 5 MG TABLET PO SCH (09:07)
[2019-08-29] MEDS: CALCIUM CARB 250MG /VITAMIN D 1 UDTAB PO SCH (09:07)
[2019-08-29] MEDS: ASCORBIC ACID 500 MG TABLET PO SCH (09:07)
[2019-08-29] MEDS: MINERAL OIL/PETROLATUM,WHITE 120 GM JAR TP SCH (09:08)
[2019-08-29] MEDS: CLOTRIMAZOLE 1% 15 GM TUBE TP SCH (09:09)
[2019-08-29] MEDS: AZITHROMYCIN 250 MG TABLET PO SCH (11:23)
[2019-08-29] MEDS ORDERED: MAGNESIUM OXIDE 400 MG TABLET PO ONE (12:00)
--- NOTE | 2019-08-29 16:21 | NUR ---
MS VENEER DRIER NOTE PATIENT MEDICALLY CLEARED FOR DISCHARGE. PATIENT IN NO ACUTE DISTRESS. NO SOB NOTED. PATIENT BREATHING IS EVEN AND UNLABORED. PATIENT SKIN ASSESSED, NO NEW SKIN BREAKDOWN NOTED. DC INSTRUCTIONS PROVIDED TO PATIENT AND CALLED TO SIGNIFICANT OTHER INDERJIT. PATIENT UNABLE TO COMPREHEND. INDERJIT VERBALIZING UNDERSTANDING AND APPROVED OF BOARD AND CARE. PER INDERJIT PATIENT WAS TO HAVE BLACK BAG WITH HIM BUT BLACK BAG NOT NOTED IN BELONGINGS LIST. CHECKED AND COULD NOT BE FOUND WITH PATIENT. MEDICATIONS GIVEN BACK WITH PATIENT FROM PHARMACY. INDERJIT MADE AWARE AND IS OKAY WITH SITUATION. PATIENT UNABLE TO SIGN BELONGINGS LIST, SIGNED BY TWO NURSES AND REMAINING BELONGINGS WITH PATIENT. PATIENT IV REMOVED. ID BAND REMOVED. PATIENT KEPT CLEAN, DRY AND COMFORTABLE THROUGHOUT SHIFT. TURNED AND REPOSITIONED Q2H. EXTREMITIES OFFLOADED ON PILLOWS. PATIENT GOING TO [facility] BOARD AND CARE. PER DR. BOLANOS PSYCH MEDICATIONS CALLED INTO BOARD AND CARE. REPORT GIVEN TO EDITING COMPUTER PUBLISHER. PATIENT GOING BY GURNEY TO AMBULANCE WITH 2 EDITING COMPUTER PUBLISHER GOING TO BOARD AND CARE. MD AWARE OF DISCHARGE.
== END 2019-08-29 16:00 | disposition home or self-care (01) | DRG 640 ==
LOC: MED 11:36 → MEDSG2 17:17 → MED 08-28 12:04
PROVIDERS: ADMIT Internal Medicine; ATTEND Internal Medicine
DX: R62.7 Adult failure to thrive (principal); N17.0 Acute kidney failure with tubular necrosis; F23 Brief psychotic disorder; F41.9 Anxiety disorder, unspecified; I10 Essential (primary) hypertension; F03.90 Unspecified dementia, unspecified severity, without behavioral disturbance, psychotic disturbance, mood disturbance, and anxiety; Z91.81 History of falling; E78.5 Hyperlipidemia, unspecified; M62.81 Muscle weakness (generalized); F32.9 Major depressive disorder, single episode, unspecified; E86.0 Dehydration; Z68.24 Body mass index [BMI] 24.0-24.9, adult; J20.9 Acute bronchitis, unspecified
CPT/HCPCS: 36415; 80048-TC; 83735-TC; 84100-TC; 85025-TC; 92521; 92526; 97110-TC; 97116-TC; 97530-TC; G0378; J7030